=== PATIENT | female | born 1985 | race African-American/Black ===

== ENCOUNTER → 2016-08-20 | Outpatient (REF) | payer OTHER ==
[~2016-08-20] MED LIST: /MOM400 PO; ALBU17IN INH; ANUS2.5C2 TOP; DOCU10CA PO; DOCU10ELUD PO; IBUP600T26 PO; PNV-CAP5 PO; TYLE325T5 PO
== END ==
LOC: M LAB REF 11:38
PROVIDERS: ATTEND Physician Assistant
DX: R50.9 Fever, unspecified (principal)

== ENCOUNTER 2016-08-28 18:59 | Emergency (ER) | payer OTHER ==
[2016-08-28 19:26] VITALS: BP 138/93
== END 2016-08-28 20:02 | disposition left against medical advice (07) ==
LOC: M ED 19:59
DX: R11.2 Nausea with vomiting, unspecified (principal); J45.909 Unspecified asthma, uncomplicated; D64.9 Anemia, unspecified; Z91.018 Allergy to other foods; Z91.040 Latex allergy status; Z79.899 Other long term (current) drug therapy; Z79.1 Long term (current) use of non-steroidal anti-inflammatories (NSAID); F17.210 Nicotine dependence, cigarettes, uncomplicated; Z53.29 Procedure and treatment not carried out because of patient's decision for other reasons

== ENCOUNTER 2016-09-28 09:43 | Emergency (ER) | payer OTHER ==
[~2016-09-28] VITALS: Ht 167.6 cm; Wt 81.6 kg
[2016-09-28] MEDS ORDERED: ALBU17IN INH (09:56)
[2016-09-28] MEDS ORDERED: GASTROGRAFIN SOLUTION 30ML (Q9963) PO ONE ×2 (11:00→11:30)
[2016-09-28 11:07] LABS: BASO % 0.6 % (0.0-1.0); EOS # 0.2 K/mm3 (0.0-0.50); EOS % 4.9 % (0.0-3.0); LARGE UNSTAINED CELL # 0.3 K/mm3 (0.0-0.4); LYMPH # 1.4 K/mm3 (1.5-4.5); LYMPH % 24.4 % (24.0-44.0); MEAN CORPUSCULAR HEMOGLOBIN 30.7 pg (27.0-33.0); MEAN CORPUSCULAR HGB CONC 32.3 g/dl (32.0-36.5); MONO # 0.5 K/mm3 (0.0-0.8); MONO % 10.4 % (0.0-5.0); NEUTROPHILS # 2.5 K/mm3 (1.8-7.7); NEUTROPHILS % 53.8 % (36.0-66.0); PLATELET COUNT, AUTOMATED 249 k/mm3 (150-450); WHITE BLOOD COUNT 4.7 K/mm3 (4.0-10.0)
[2016-09-28] MEDS ORDERED: ONDANSETRON 4MG/2ML VIAL (J2405) IV ONE (11:15)
[2016-09-28 11:28] LABS: ALBUMIN 3.4 GM/DL (3.2-5.2); ALBUMIN/GLOBULIN RATIO 0.92 (1.00-1.93); ALKALINE PHOSPHATASE 38 U/L (45-117); ALT/SGPT 11 U/L (12-78); ANION GAP 6 MEQ/L (8-16); AST/SGOT 7 U/L (15-37); BILIRUBIN,TOTAL 0.4 MG/DL (0.2-1.0); BLOOD UREA NITROGEN 8 MG/DL (7-18); CARBON DIOXIDE LEVEL 25 MEQ/L (21-32); CHLORIDE LEVEL 108 MEQ/L (98-107); CREATININE FOR GFR 0.67 MG/DL (0.55-1.02); GLOMERULAR FILTRATION RATE > 60.0 (>60); GLUCOSE, FASTING 83 MG/DL (70-105); POTASSIUM SERUM 3.4 MEQ/L (3.5-5.1); SODIUM LEVEL 139 MEQ/L (136-145); TOTAL PROTEIN 7.1 GM/DL (6.4-8.2)
[2016-09-28] MEDS ORDERED: ISOVUE-370 76% 100ML VIAL (Q9967) As Ordered ONE (12:15)
--- NOTE | 2016-09-28 14:17 | REP ---
CT ABDOMEN AND PELVIS WITH IV CONTRAST: 09/28/2016. Clinical history: Right lower quadrant pain. Rule out appendicitis. Technique: Bolus of 100 ml Isovue 370 given. Scanning through the abdomen and pelvis. Only a small amount of oral contrast appears ingested barely opacifying a portion of the stomach and minimally in small bowel loops. Coronal and sagittal reconstructions were provided. Findings: No prior study.CT abdomen: The lung bases were clear. Heart is not enlarged. There is no pericardial thickening or effusion. No definite hiatal hernia. Liver, spleen, gallbladder, pancreas, adrenal glands and kidneys were unremarkable. The aorta is without aneurysm or dissection. There is no periaortic other retroperitoneal pathologic sized lymphadenopathy. Lung window review of all CT slice levels shows no perforation or abscess. Small bowel loops are fluid filled but not abnormally dilated. Colon in the abdomen proper shows no sign of colitis, diverticulitis, stricture or mass. Transverse and left colon are collapsed without inflammatory changes adjacent to the colon in the fat. The lung window review of all CT slices in the abdomen and pelvis shows no perforation or free air. Bone windows show lumbar and lower thoracic spine as well as the visualized ribs all intact without focal lesion. No ventral hernia. CT pelvis: The bony hips, pelvis, sacrum, SI joints, lumbosacral junction and symphysis pubis were unremarkable. There is a paucity of fat in the retroperitoneum and mesentery. The absence of oral contrast in the bowel loops distally is limiting sensitivity of the examination. However, the cecum shows stool and gas within the ileocecal valve unremarkable. It is very difficult to separate the appendix out from other structures. I do not see air bubbles or signs of perforation on lung window review of this region. I do not see significant inflammatory changes in the fat adjacent to the cecum that would clearly define appendicitis. Small bowel loops in the pelvis are not abnormally dilated. The distal left colon, sigmoid and rectum are without signs of colitis or diverticulitis. I do not see a definite adnexal mass but superior and lateral to the uterine fundus is an area of tissue enhancement and some cystic change up to 2.5 cm. This could be an adnexal cyst. The uterus is anteverted. In the fundus of the uterus is an oval low density zone. It is 2.4 x 1 x 2.5 cm. This could be a fluid in the endometrial cavity from menses or it could relate to a gestational sac or pseudogestational sac. There is no ventral hernia or inguinal hernia. There are some inguinal nodes which are not pathologic by CT size criteria, the largest of these is 7 mm in short axis. Impression: 1. Study insensitive for determination of appendicitis. There is no gross evidence of appendiceal abscess, perforation or free air near the cecum. The appendix is not confidently identified. The paucity of retroperitoneal and omental fat in this patient and absence of oral contrast in distal loops limits the exam significantly for that purpose. 2. No evidence for definite pelvic free fluid. There is an anteverted uterus with a 2.5 x 2.4 x 1 cm fluid collection in the fundus. This could be menstrual fluid, gestational sac or pseudogestational sac. I would note that the technologist documented that the patient denied . 3. Superior and towards the right lateral aspect of the uterus is a 2.5 cm low density focus with some enhancement of tissue adjacent to it. This could be ovarian tissue with a cyst or other. No perforation or findings to suggest abscess. I cannot definitely connect this to suggest it is a dilated inflamed appendix. No pelvic free fluid. 4. Upper abdomen unremarkable. 5. Pelvic ultrasound recommended. This is to evaluate the uterus and adnexa but also I would recommend a limited abdomen ultrasound for graded compression ultrasound of the region of the cecum and appendix. This is recommended to be done at the same time. Signed by Lamont Rollins MD 09/28/2016 07:32 P
[2016-09-28 15:09] LABS: CONTROL LINE HCG INT CTR LINE PRESENT
[2016-09-28] MEDS ORDERED: ACETAMINOPHEN 325 MG TAB PO ONE (15:30)
[2016-09-28] MEDS ORDERED: MECLIZINE 25 MG TABLET PO ONE (15:30)
[2016-09-28] MEDS ORDERED: ZOFR4TAB3 PO (16:25)
[2016-09-28] MEDS ORDERED: PRENTAB40 PO (16:28)
[2016-09-28 16:46] VITALS: BP 116/65
--- NOTE | 2016-09-29 08:00 | REP ---
FIRST TRIMESTER OB ULTRASOUND: 09/28/2016. Clinical history: Evaluate adnexa and ovaries. Findings: The patient had a CT abdomen and pelvis earlier this date with IV contrast. Concern for possible appendicitis with lower abdominal pain, vomiting. Our technologist note indicate that the patient states that she was not . The CT scan showed oval fluid collection in the fundus of the uterus that could be gestational sac or other. Transabdominal images were obtained. These demonstrate a gestational sac in the fundus of the uterus. There is a pole with a crown-rump length 6 mm. This corresponds to 6 weeks 2 days. This would give an EDC of 05/22/2017. heart activity noted at 128 bpm. There is no subchorionic bleed. The right ovary is 3.8 x 4.3 x 1.6 cm. Within it is a 1.7 cm presumed corpus luteum. Doppler tracing shows resistive index 0.61 for that right ovary. The left ovary is 3.5 x 2.5 x 1.5 cm. It also shows normal Doppler tracing with resistive index 0.54. No cyst or solid mass. No free fluid. Impression: 1. Single intrauterine gestation at 6 weeks 2 days gestational age by crown-rump length. heart activity noted at 128 bpm. EDC 05/22/2017.2. No subchorionic bleed or pelvic free fluid. 3. A 1.7 cm presumed corpus luteum in the right ovary with normal Doppler tracings to both ovaries and no free fluid. Signed by Lamont Rollins MD 09/29/2016 08:41 A
--- NOTE | 2016-09-29 08:02 | REP ---
LIMITED ABDOMINAL ULTRASOUND: 09/28/2016. Comparison: CT abdomen and pelvis this date which did not clearly visualize the appendix. Clinical history: Lower abdominal pain. She is 6 weeks 2 days by OB ultrasound at this time. Findings: Sonographic evaluation of the right lower quadrant in this patient with lower abdominal pain but no fever or white count. Appendix was not visualized. There was some pain with transducer pressure but no rebound tenderness. No mesenteric lymph nodes or infiltration of the mesenteric fat is noted. There is a small amount of free fluid in the right lower quadrant which was not definitely seen on the OB first trimester ultrasound today. There is peristalsis of small bowel and the cecum is visualized. No visible iliac nodes. Impression: 1. There is transducer pressure pain, but no rebound tenderness in the right lower quadrant during today's scan. The cecum is visualized, but the appendix is not. No adenopathy or infiltration of the pericecal fat. This does not exclude the possibility of appendicitis but she may be followed clinically and be rescanned a clinically appropriate interval if that becomes necessary. Signed by Lamont Rollins MD 09/29/2016 08:41 A
== END 2016-09-28 16:52 | disposition home or self-care (01) ==
LOC: M ED 10:19
DX: O99.89 Other specified diseases and conditions complicating pregnancy, childbirth and the puerperium (principal); A09 Infectious gastroenteritis and colitis, unspecified; Z3A.01 Less than 8 weeks gestation of pregnancy
CPT/HCPCS: 36415; 74177; 76705; 76801; 80053; 83690; 84703; 85025; 96374; 99283; J2405; Q9963; Q9967

== ENCOUNTER → 2016-12-22 | Outpatient (CLI) | payer MEDICAID, OTHER ==
[~2016-12-22] MED LIST changes: +ACET30TAB PO; +ACET50TA PO; +ALBU83IN INH; +PRED20TA PO; +PRENTAB40 PO; +RANI150T; +TUMS500C PO; +VENTAER IN; +ZITHTAB PO; +ZOFR4TAB3 PO
[2016-12-22 14:45] LABS: BASO # 0.1 K/mm3 (0.0-0.2); BASO % 0.6 % (0.0-1.0); EOS # 0.8 K/mm3 (0.0-0.50); EOS % 6.7 % (0.0-3.0); LARGE UNSTAINED CELL # 0.4 K/mm3 (0.0-0.4); LARGE UNSTAINED CELL % 3.3 % (0.0-4.0); LYMPH # 3.1 K/mm3 (1.5-4.5); LYMPH % 24.8 % (24.0-44.0); MEAN CORPUSCULAR HEMOGLOBIN 32.3 pg (27.0-33.0); MEAN CORPUSCULAR HGB CONC 33.2 g/dl (32.0-36.5); MEAN CORPUSCULAR VOLUME 97.3 fl (80.0-96.0); MONO # 0.9 K/mm3 (0.0-0.8); MONO % 7.6 % (0.0-5.0); NEUTROPHILS # 7.1 K/mm3 (1.8-7.7); NEUTROPHILS % 57.1 % (36.0-66.0); PLATELET COUNT, AUTOMATED 317 k/mm3 (150-450); RED CELL DISTRIBUTION WIDTH 14.2 % (11.5-14.5)
[2016-12-24 08:50] LABS: WHITE BLOOD COUNT 12.4 K/mm3 (4.0-10.0)
[2016-12-24 12:08] LABS: HBsAg Prenatal NEGATIVE (NEGATIVE)
== END ==
LOC: M LAB 13:29
PROVIDERS: ATTEND Specialist
DX: Z34.81 Encounter for supervision of other normal pregnancy, first trimester (principal); Z36 Encounter for antenatal screening of mother

== ENCOUNTER → 2017-03-11 | Outpatient (CLI) | payer OTHER ==
--- NOTE | 2017-03-11 17:12 | REP ---
OB ULTRASOUND: Real-time sonographic evaluation of the gravid uterus is performed. There is a single living intrauterine gestation. The estimated gestational age is 29 weeks 5 days based on the first ultrasound, EDC 05/22/2017. Today's measurements indicate appropriate growth. BPD 77 mm = 30 weeks 6 days, at the 66th percentile. HC 263 mm = 28 weeks 4 days, at the 25th percentile. AC 255 mm = 29 weeks 5 days, at the 48th percentile. Femur length 60 mm = 31 weeks 2 days, at the 77th percentile. HC/AC ratio 1.03 within normal range. Estimated weight 1522 grams, 51st percentile. Cervix is closed measures 5.5 cm in length. heart rate 158 beats per minute. Amniotic fluid within normal limits, RICH 14.5 within normal range of 9.0-23.3. SD ratio 2.61 within normal range. RI 0.62 within normal range. SEEN/GROSSLY UNREMARKABLE Lateral ventricles Yes Posterior fossa Yes Upper lip Yes Four-chamber heart Yes LVOT Yes RVOT No Stomach Yes Cord insertion Yes Three vessel cord No Kidneys Yes Bladder Yes Spine Yes position: Vertex. Placenta: Anterior and fundal with grade 1 with no previa or abruption. Signed by Phuc Garrison MD 03/12/2017 05:36 P
== END ==
LOC: M RAD 14:34
PROVIDERS: ATTEND Specialist
DX: Z34.82 Encounter for supervision of other normal pregnancy, second trimester (principal); Z36 Encounter for antenatal screening of mother; Z3A.29 29 weeks gestation of pregnancy

== ENCOUNTER 2017-03-18 12:03 | Outpatient (CLI) | payer OTHER ==
[~2017-03-18] VITALS: Ht 170.2 cm; Wt 89.6 kg
[~2017-03-18 12:03] MED LIST changes: -ACET30TAB PO; -ACET50TA PO; -ALBU83IN INH; -PRED20TA PO; -RANI150T; -TUMS500C PO; -VENTAER IN; -ZITHTAB PO
[2017-03-18 12:30] VITALS: BP 104/56
[2017-03-18] MEDS ORDERED: ACETAMINOPHEN 500 MG TAB PO PRN (14:00)
[2017-03-18] MEDS ORDERED: FAMOTIDINE 20 MG TAB PO ONE (14:00)
[2017-04-26] MEDS ORDERED: ACET50TA PO (17:24)
[2017-04-26] MEDS ORDERED: TUMS500C PO (17:24)
[2017-04-26] MEDS ORDERED: ACET30TAB PO (17:45)
== END 2017-03-18 15:50 | disposition home or self-care (01) ==
LOC: M LDO 12:03
PROVIDERS: ATTEND Specialist
DX: O26.893 Other specified pregnancy related conditions, third trimester (principal); R10.32 Left lower quadrant pain; O99.613 Diseases of the digestive system complicating pregnancy, third trimester; R12 Heartburn; Z3A.30 30 weeks gestation of pregnancy; Z91.040 Latex allergy status; Z91.018 Allergy to other foods

== ENCOUNTER → 2017-04-13 | Outpatient (CLI) | payer OTHER ==
[~2017-04-13] MED LIST changes: +ACET30TAB PO; +ACET50TA PO; +ALBU83IN INH; +PRED20TA PO; +RANI150T; +TUMS500C PO; +VENTAER IN; +ZITHTAB PO
[2017-04-13 14:12] LABS: MEAN CORPUSCULAR HEMOGLOBIN 30.9 pg (27.0-33.0); MEAN CORPUSCULAR HGB CONC 33.4 g/dl (32.0-36.5); MEAN CORPUSCULAR VOLUME 92.4 fl (80.0-96.0); PLATELET COUNT, AUTOMATED 307 10^3/uL (150-450); RED CELL DISTRIBUTION WIDTH 13.6 % (11.5-14.5)
[2017-04-13 14:22] LABS: ADD MANUAL DIFFER YES; DIFF SLIDE NUMBER 245; POSITIVE DIFF POS FLAG
--- NOTE | 2017-04-13 15:10 | REP ---
Follow-up obstetric ultrasound for anatomy follow-up from 03/11/2017. On the prior study the cardiac right ventricular outflow tract and three-vessel cord cannot be optimally demonstrated. The study today is for follow-up of these structures. There is a single intrauterine gestation in a vertex presentation. There is motion and cardiac activity with a heart rate of 141 beats per minute. The placenta is fundal and left lateral. There is no placenta previa or abruptio. Placenta is grade 1. Subjectively the amniotic fluid volume is normal. The amniotic fluid index is 9.5. This is a 0.0 - 28.4). Based on today's measurements the gestational age is 34 weeks 2 days with an NITIN of 05/23/2017. According to the first ultrasound the gestational age is 34 weeks 3 days. weight is 234, 0 grams (5 pounds, 2 ounces). This is the 39th percentile for 34 weeks 3 days. biophysical profile: Breathing 2 Movement 2 Tone 2 Amniotic fluid volume 2 Total 01/27 Umbilical artery Doppler assessment: SD ratio 2.24. This is 2.00 - 3.00) Resistive index 0.55 (0.59 - 0.75) Diastolic flow velocity 20.1 cm/sec (normal). On the study today the cardiac right ventricular outflow tract is adequately demonstrated and unremarkable. The three-vessel cord is adequately demonstrated and unremarkable. The remainder of the anatomy was previously normal. Signed by Phcu Abraham MD 04/13/2017 03:01 P
[2017-04-13 15:14] LABS: BANDS 1 % (< 11); BASOPHILS 1 % (0-4); EOSINOPHILS 4 % (0-5)
== END ==
LOC: M LAB 11:50
PROVIDERS: ATTEND Obstetrics & Gynecology
DX: Z34.82 Encounter for supervision of other normal pregnancy, second trimester (principal); Z36.2 Encounter for other antenatal screening follow-up; Z3A.34 34 weeks gestation of pregnancy

== ENCOUNTER 2017-04-16 08:18 | Emergency (ER) | payer OTHER ==
[~2017-04-16] VITALS: Ht 167.6 cm; Wt 94.1 kg
[~2017-04-16 08:18] MED LIST changes: -ACET30TAB PO; -ACET50TA PO; -ALBU83IN INH; -PRED20TA PO; -RANI150T; -TUMS500C PO; -VENTAER IN; -ZITHTAB PO
[2017-04-16] MEDS ORDERED: methylPREDNISolone INJ 125 MG/2 ML VIAL (J2930) IV ONE (08:30)
[2017-04-16] MEDS ORDERED: ALBUTEROL SULFATE 2.5 MG/0.5 ML INH NEB SOLN INH ONE (08:30)
[2017-04-16] MEDS ORDERED: IPRATROPIUM 0.5MG/ALBUTEROL 2.5MG INH SOL UD 3ML (DUONEB)(J7620) NEB ONE (08:30)
[2017-04-16] MEDS ORDERED: RANI150T (08:33)
--- NOTE | 2017-04-16 09:13 | REP ---
CHEST, SINGLE VIEW: There is no evidence of acute infiltrate. No pleural effusion is seen. The heart is normal in size. The mediastinal silhouette is unremarkable. The visualized osseous structures are intact. IMPRESSION: No acute pulmonary disease. Signed by Phuc Garrison MD 04/16/2017 02:33 P
[2017-04-16 09:21] LABS: MEAN CORPUSCULAR HEMOGLOBIN 30.8 pg (27.0-33.0); MEAN CORPUSCULAR HGB CONC 33.2 g/dl (32.0-36.5); MEAN CORPUSCULAR VOLUME 92.6 fl (80.0-96.0); PLATELET COUNT, AUTOMATED 299 10^3/uL (150-450); RED CELL DISTRIBUTION WIDTH 13.5 % (11.5-14.5)
[2017-04-16 09:34] LABS: POSITIVE DIFF POS FLAG
[2017-04-16 09:35] LABS: ADD MANUAL DIFFER YES; DIFF SLIDE NUMBER 131
[2017-04-16 09:51] LABS: ALBUMIN 2.6 GM/DL (3.2-5.2); ALBUMIN/GLOBULIN RATIO 0.58 (1.00-1.93); ALKALINE PHOSPHATASE 83 U/L (45-117); ALT/SGPT 12 U/L (12-78); ANION GAP 9 MEQ/L (8-16); AST/SGOT 6 U/L (15-37); BILIRUBIN,DIRECT < 0.1 MG/DL (0.0-0.2); BILIRUBIN,TOTAL 0.4 MG/DL (0.2-1.0); BLOOD UREA NITROGEN 4 MG/DL (7-18); CALCIUM LEVEL 8.6 MG/DL (8.5-10.1); CARBON DIOXIDE LEVEL 23 MEQ/L (21-32); CHLORIDE LEVEL 107 MEQ/L (98-107); CREATININE FOR GFR 0.44 MG/DL (0.55-1.02); GLOMERULAR FILTRATION RATE > 60.0 (>60); GLUCOSE, FASTING 85 MG/DL (70-105); POTASSIUM SERUM 3.6 MEQ/L (3.5-5.1); SODIUM LEVEL 139 MEQ/L (136-145); THYROXINE (T4) 15.1 UG/DL (4.5-12.0); TOTAL PROTEIN 7.1 GM/DL (6.4-8.2)
[2017-04-16 09:53] LABS: EOSINOPHILS 4 % (0-5)
[2017-04-16] MEDS ORDERED: ONDANSETRON 4MG/2ML VIAL (J2405) IV ONE (10:15)
[2017-04-16 10:27] VITALS: O2SAT 98
[2017-04-16] MEDS ORDERED: PRED20TA PO (11:15)
[2017-04-16] MEDS ORDERED: VENTAER IN (11:17)
[2017-04-16] MEDS ORDERED: ZITHTAB PO (11:17)
[2017-04-16] MEDS ORDERED: AZITHROMYCIN 250 MG TAB PO ONE (11:30)
[2017-04-16 11:53] VITALS: BP 108/62
[2017-04-16] MEDS ORDERED: ALBU83IN INH (12:41)
[2017-04-26] MEDS ORDERED: ACET50TA PO (17:24)
[2017-04-26] MEDS ORDERED: TUMS500C PO (17:24)
[2017-04-26] MEDS ORDERED: ACET30TAB PO (17:45)
== END 2017-04-16 12:36 | disposition home or self-care (01) ==
LOC: M ED 08:18
DX: O99.52 Diseases of the respiratory system complicating childbirth (principal); O99.280 Endocrine, nutritional and metabolic diseases complicating pregnancy, unspecified trimester; Z79.899 Other long term (current) drug therapy; Z91.040 Latex allergy status; Z91.018 Allergy to other foods
CPT/HCPCS: 71010; 80048; 80076; 83605; 84436; 84443; 85025; 87040; 87804; 93041; 94640; 94760; 96374; 96375; 99285; J2405; J2930

== ENCOUNTER 2017-04-26 12:47 | Outpatient (CLI) | payer MEDICAID, SELFPAY, OTHER ==
[2017-04-26] MEDS: ACETAMINOPHEN 500 MG TAB PO (13:50)
[2017-04-26] MEDS: NITROFURANTOIN (MACROBID) 100 MG CAP PO (18:17)
[2017-04-26] MEDS: ACETAMINOPH W/CODEINE #3 TAB UD PO (18:18)
[2017-04-26] MEDS ORDERED: NITROFURANTOIN (MACROBID) 100 MG CAP PO (21:00)
== END 2017-04-26 18:24 | disposition home or self-care (01) ==
LOC: M LDO 12:47
DX: O26.893 Other specified pregnancy related conditions, third trimester (principal); Z3A.37 37 weeks gestation of pregnancy; Z91.040 Latex allergy status; Z91.018 Allergy to other foods
CPT/HCPCS: 81001

== ENCOUNTER 2017-05-06 20:39 | Outpatient (CLI) | payer SELFPAY ==
[~2017-05-06] VITALS: Ht 170.2 cm; Wt 92.3 kg
[~2017-05-06 20:39] MED LIST changes: +ACET30TAB PO; +ACET50TA PO; +ALBU83IN INH; +PRED20TA PO; +RANI150T; +TUMS500C PO; +VENTAER IN; +ZITHTAB PO
[2017-05-06 20:44] VITALS: BP 109/71
[2017-05-06] MEDS ORDERED: FAMO20TA PO (21:11)
== END 2017-05-06 21:20 | disposition home or self-care (01) ==
LOC: M LDO 20:39
PROVIDERS: ATTEND Obstetrics & Gynecology
DX: O47.1 False labor at or after 37 completed weeks of gestation (principal); Z3A.37 37 weeks gestation of pregnancy; Z87.442 Personal history of urinary calculi; O99.343 Other mental disorders complicating pregnancy, third trimester; F31.9 Bipolar disorder, unspecified; O99.513 Diseases of the respiratory system complicating pregnancy, third trimester; J45.909 Unspecified asthma, uncomplicated; Z88.0 Allergy status to penicillin; Z91.040 Latex allergy status; Z91.018 Allergy to other foods; Z79.899 Other long term (current) drug therapy

== ENCOUNTER 2017-05-09 01:00 | Outpatient (CLI) | payer SELFPAY ==
[~2017-05-09] VITALS: Ht 167.6 cm; Wt 95.0 kg
[~2017-05-09 01:00] MED LIST changes: +FAMO20TA PO
[2017-05-09 01:05] VITALS: BP 110/57
[2017-05-09] MEDS ORDERED: VENTAER IN (01:24)
[2017-05-09] MEDS ORDERED: PROMETHAZINE INJ 25 MG/ML VIAL (J2550) IV ONE (02:00)
[2017-05-09] MEDS ORDERED: MORPHINE 10 MG/ML 1ML VIAL SC ONE (02:00)
[2017-05-09] MEDS ORDERED: MORPHINE 10 MG/ML 1ML VIAL IV ONE (02:00)
== END 2017-05-09 07:26 | disposition home or self-care (01) ==
LOC: UNDOADMIN 01:00 → M LDI 01:00 → M LDO 01:00 → UNDODISIN 07:26 → EDSTATUS 05-11 15:36
PROVIDERS: ATTEND Obstetrics & Gynecology
DX: O47.1 False labor at or after 37 completed weeks of gestation (principal); Z3A.38 38 weeks gestation of pregnancy

== ENCOUNTER 2017-05-16 07:59 | Inpatient (IN) | payer SELFPAY ==
[2017-05-16] VITALS (23 sets, daily range): BP systolic 86–118; BP diastolic 52–73
[~2017-05-16] VITALS: Ht 170.2 cm; Wt 94.6 kg
[2017-05-16] MEDS: miSOPROStol 50 MCG 1/2 TAB (S0191) PO SCH ×2 (09:32→13:32)
[2017-05-16 09:40] LABS: MEAN CORPUSCULAR HEMOGLOBIN 30.5 pg (27.0-33.0); MEAN CORPUSCULAR HGB CONC 33.3 g/dl (32.0-36.5); MEAN CORPUSCULAR VOLUME 91.6 fl (80.0-96.0); PLATELET COUNT, AUTOMATED 365 10^3/uL (150-450); RED CELL DISTRIBUTION WIDTH 14.1 % (11.5-14.5); WHITE BLOOD COUNT 9.9 10^3/uL (4.0-10.0)
--- NOTE | 2017-05-16 10:02 | HPE ---
DATE OF ADMISSION: 05/16/2017 Yara is a 31-year-old 6, para 5-0-0-5 at 39-1/7 weeks gestation with an estimated date of confinement (EDC) of 05/22/2017 based on first trimester ultrasound. She presents to labor and delivery today per request for social induction per consult with Dr. Sybil Clifton. care was initiated at [facility] in the first trimester. course uncomplicated. OBSTETRICAL HISTORY: September 2007 at 42 weeks gestation she had a vacuum-assisted delivery for a 6 pound 2 ounces male. November 2009 at 38-2/7 weeks gestation she had spontaneous vaginal delivery of a 6 pound 9 ounce male. November 2010 at 40 weeks gestation she had a spontaneous vaginal delivery for a 6 pound 10 ounce male. April 2013 at 40 weeks gestation she had a spontaneous vaginal delivery for a 7 pound female. June 2014 at 39-6/7 weeks gestation she had a spontaneous vaginal delivery for 5 pound 7 ounce male. OBSTETRIC LABS: B positive. Antibody screen negative. Rubella immune. VDRL nonreactive. Urine culture no growth. Hep B surface antigen negative. HIV negative. Hep C antibody nonreactive. Gonorrhea and chlamydia negative. Declined genetic serum screening labs. Gestational diabetic screening 78. Group B Streptococcus (GBS) negative. PAST MEDICAL HISTORY: Kidney stones. Bipolar. depression. Asthma. Seasonal allergies. Penicillin allergy. Latex allergy. Abnormal Pap smear. Childhood varicella. SURGERIES: None. FAMILY HISTORY: Diabetes, hypertension, anemia, schizophrenia, Moyamoya disease. SOCIAL HISTORY: The patient is single. The father is not involved and not at bedside. She does have a friend that is for social support. She is a previous smoker, reports quitting prior to . Denies alcohol and drug use. Denies history of any sexually transmitted infections. Denies history of abuse physical, sexual and emotional. ALLERGIES: 1. LATEX. 2. PENICILLIN. CURRENT MEDICATIONS:: - Zantac 150 b.i.d. - vitamins OBJECTIVE: Temperature 98.5, pulse 90, respirations 18, blood pressure 118/73. She is alert and oriented times three, smiling and talkative. heart rate is 150 with moderate variability, positive accelerations, negative decelerations, occasional contraction. Abdomen is gravid, cephalic presentation. Estimated weight 6-1/2 pounds. Sterile vaginal exam 1 cm dilated, 50% effaced, -2 station. ASSESSMENT: Intrauterine at 39-1/7 weeks. heart rate category 1. PLAN: Admit patient to labor and delivery. Routine labs. Saline lock. Out of bed ad jamel. Regular diet at this time. Misoprostol 50 mcg q.4 h for cervical ripening. I did review risks to induction including increased risk for section, failed induction. intolerance to labor. The patient has had all her questions answered and requests to continue social induction. I do anticipate cervical ripening.
[2017-05-16] MEDS ORDERED: LR 1,000 ML IV SCH (17:28)
[2017-05-16] MEDS ORDERED: OXYTOCIN DRIP 30 UNITS in APPROPRIATE DILUENT 1 EA IV SCH ×5 (17:30→23:07)
[2017-05-16] MEDS ORDERED: FENTANYL 2MCG/ML ROPIVACAINE 0.2% IN 0.9% NACL 200ML IVBAG As Ordered ONE (17:30)
[2017-05-16] MEDS ORDERED: ePHEDrine SULFATE 25 MG/5 ML(5MG/ML) SYRINGE As Ordered ONE (19:23)
[2017-05-16] MEDS ORDERED: MEASLES,MUMPS,RUBELLA VACCINE INJ (MMR-II) (90707) SC SCH (23:15)
[2017-05-16] MEDS ORDERED: METHYLERGONOVINE MALEATE 0.2 MG TAB PO PRN (23:15)
[2017-05-16] MEDS ORDERED: RHOGAM 300 MCG (1500 IU) INJ (J2790) IM SCH (23:15)
[2017-05-16] MEDS ORDERED: DIBUCAINE 1% OINTMENT 30GM TOP PRN (23:15)
[2017-05-16] MEDS ORDERED: ACETAMINOPHEN 500 MG TAB PO PRN (23:15)
[2017-05-16] MEDS ORDERED: DOCUSATE SODIUM 100 MG CAP PO PRN (23:15)
[2017-05-16] MEDS: IBUPROFEN 800 MG TAB PO PRN (23:49)
--- NOTE | 2017-05-17 00:49 | DN ---
DATE OF SERVICE: 05/16/2017 Yara is a 31-year-old 6, para 6-0-0-6 now who was admitted to labor and delivery for induction of labor for social reasons. Misoprostol and intravenous (IV) Pitocin was utilized. Labor did ensue and she utilized an epidural for her labor coping. She progressed to full dilation at 1038. She pushed to a normal spontaneous vaginal delivery of a live female in occiput anterior (OA) position with restitution to right occiput transverse (ROT) position at 1046. There was no nuchal cord. The shoulders delivered with gentle downward traction and the corpus immediately followed. The was placed on maternal abdomen crying and active. Mouth and nares were bulb suctioned. The cord was clamped times two once pulsations ceased and cut by maternal friend. Uterine hemostasis was achieved with IV Pitocin rapid infusion and uterine fundal massage. Estimated blood loss 300 mL. Perineum and vagina were inspected, noted to have a perineal abrasion. The abrasion was bleeding, so one interrupted suture was placed with 3-0 Rapide. Geff female weighed 2780 grams or 6 pounds 2 ounces, scores 8 and 9. Family is going to name her daughter Colleen Suarez. The mom plans to both breast and bottle feed. At the close of delivery, lap counts, needle counts and instrument counts were correct and verified.
[2017-05-17 01:00] VITALS: BP 121/60
[2017-05-17 06:17] VITALS: BP 101/58
[2017-05-17] MEDS ORDERED: PERCOCET 5MG/325MG TAB PO PRN (08:00)
[2017-05-17] MEDS: PERCOCET 5MG/325MG TAB PO PRN ×3 (08:11→21:43)
[2017-05-17] MEDS: PRENATAL VITAMINS CHEWABLE TABLET PO SCH (08:11)
[2017-05-17 18:07] VITALS: BP 115/67
[2017-05-17] MEDS: IBUPROFEN 800 MG TAB PO PRN (18:08)
[2017-05-18] MEDS: PERCOCET 5MG/325MG TAB PO PRN ×2 (02:04→09:50)
[2017-05-18] MEDS: IBUPROFEN 800 MG TAB PO PRN (05:26)
[2017-05-18 06:00] VITALS: BP 119/71
[2017-05-18] MEDS: PRENATAL VITAMINS CHEWABLE TABLET PO SCH (07:31)
[2017-05-18] MEDS ORDERED: ADVI200C5 PO (09:12)
== END 2017-05-18 14:25 | disposition home or self-care (01) | DRG 560 ==
LOC: M LDI 07:59 → M OBS 05-17 02:11
PROVIDERS: ADMIT Advanced Practice Midwife; ATTEND Advanced Practice Midwife
PROC: 10E0XZZ Delivery of Products of Conception, External Approach (ICD-10-PCS; principal; 2017-05-16)
PROC: 3E0DXGC Introduction of Other Therapeutic Substance into Mouth and Pharynx, External Approach (ICD-10-PCS; 2017-05-16)
PROC: 3E033VJ Introduction of Other Hormone into Peripheral Vein, Percutaneous Approach (ICD-10-PCS; 2017-05-16)
DX: O80 Encounter for full-term uncomplicated delivery (principal); Z87.891 Personal history of nicotine dependence; Z37.0 Single live birth; Z3A.39 39 weeks gestation of pregnancy; Z88.0 Allergy status to penicillin; Z91.040 Latex allergy status

== ENCOUNTER 2017-09-14 11:31 | Emergency (ER) | payer OTHER, MEDICAID ==
[2017-09-14] MEDS: IPRATROPIUM 0.5MG/ALBUTEROL 2.5MG INH SOL UD 3ML (DUONEB)(J7620) NEB ×2 (11:43→11:51)
[2017-09-14] MEDS: methylPREDNISolone INJ 125 MG/2 ML VIAL (J2930) IV (11:55)
== END 2017-09-14 15:11 | disposition home or self-care (01) ==
LOC: M ED 11:31
DX: J45.901 Unspecified asthma with (acute) exacerbation (principal); R00.0 Tachycardia, unspecified; F31.9 Bipolar disorder, unspecified; Z91.018 Allergy to other foods; Z91.040 Latex allergy status
CPT/HCPCS: J2930

== ENCOUNTER 2017-10-16 18:30 | Emergency (ER) | payer OTHER ==
[2017-10-16 19:23] LABS: BASO # 0.1 10^3/uL (0.0-0.2); BASO % 0.3 % (0.0-1.0); EOS # 0.2 10^3/uL (0.0-0.50); EOS % 1.3 % (0.0-3.0); HEMATOCRIT 37.3 % (36.0-47.0); HEMOGLOBIN 12.5 g/dl (12.0-15.5); IMMATURE GRANULOCYTE % 0.4 % (0-3.0); LYMPH # 2.2 10^3/uL (1.5-4.5); LYMPH % 12.5 % (24.0-44.0); MEAN CORPUSCULAR HEMOGLOBIN 29.7 pg (27.0-33.0); MEAN CORPUSCULAR HGB CONC 33.5 g/dl (32.0-36.5); MEAN CORPUSCULAR VOLUME 88.6 fl (80.0-96.0); MONO # 1.7 10^3/uL (0.0-0.8); MONO % 9.6 % (0.0-5.0); NEUTROPHILS # 13.3 10^3/uL (1.8-7.7); NEUTROPHILS % 75.9 % (36.0-66.0); PLATELET COUNT, AUTOMATED 368 10^3/uL (150-450); RED BLOOD COUNT 4.21 10^6/uL (4.00-5.40); RED CELL DISTRIBUTION WIDTH 15.8 % (11.5-14.5); WHITE BLOOD COUNT 17.5 10^3/uL (4.0-10.0)
[2017-10-16] MEDS: NS 1,000 ML IV (19:46)
[2017-10-16] MEDS: MORPHINE 4 MG/ML 1ML VIAL/SYRINGE (J2270) IV (19:47)
[2017-10-16 19:50] LABS: CONTROL LINE HCG INT CTR LINE PRESENT; HCG, SERUM QUALITATIVE NEGATIVE (NEGATIVE)
[2017-10-16 19:57] LABS: ANION GAP 6 MEQ/L (8-16); BLOOD UREA NITROGEN 8 MG/DL (7-18); CALCIUM LEVEL 8.4 MG/DL (8.5-10.1); CARBON DIOXIDE LEVEL 25 MEQ/L (21-32); CHLORIDE LEVEL 110 MEQ/L (98-107); CREATININE FOR GFR 0.75 MG/DL (0.55-1.30); GLOMERULAR FILTRATION RATE > 60.0 (>60); GLUCOSE, FASTING 91 MG/DL (70-100); HCG, SERUM QUANTITATIVE < 1.0 MIU/ML; POTASSIUM SERUM 3.7 MEQ/L (3.5-5.1); SODIUM LEVEL 141 MEQ/L (136-145)
[2017-10-16] MEDS ORDERED: ISOVUE-370 76% 100ML VIAL (Q9967) As Ordered (20:45)
[2017-10-16] MEDS: KETOROLAC 30 MG/ML VIAL (J1885) IV (20:50)
[2017-10-16 22:32] LABS: KETONE, URINE AUTO RFX NEGATIVE (NEGATIVE); NITRITE, URINE AUTO RFX NEGATIVE (NEGATIVE); RBC, URINE AUTO RFX 4 /HPF (0-3); SQUAM EPITHELIAL CELL UR AURFX 1 /HPF (0-6); WBC, URINE AUTO RFX 8 /HPF (0-3)
[2017-10-16 22:33] LABS: LEUKOCYTE ESTERASE UR AUTO RFX TRACE (NEGATIVE)
[2017-10-16] MEDS: MORPHINE 2 MG/ML 1ML SYRINGE (J2270) IV (23:31)
[2017-10-16 23:38] LABS: CHLAMYDIA DNA AMPLIFICATION NEGATIVE (NEGATIVE); GC DNA AMPLIFICATION NEGATIVE (NEGATIVE)
[2017-10-16] MEDS ORDERED: metroNIDAZOLE (FLAGYL) 500 MG TAB PO ×2 (23:45)
[2017-10-17] MEDS: cefTRIAXone SOD 250 MG VIAL (J0696) IM (00:03)
[2017-10-17] MEDS: metroNIDAZOLE (FLAGYL) 500 MG TAB PO (00:03)
[2017-10-17] MEDS: AZITHROMYCIN 250 MG TAB PO (00:03)
== END 2017-10-17 00:39 | disposition home or self-care (01) ==
LOC: M ED 10-17 00:39
DX: A59.09 Other urogenital trichomoniasis (principal); Z87.440 Personal history of urinary (tract) infections; Z87.442 Personal history of urinary calculi; Z91.018 Allergy to other foods; Z91.040 Latex allergy status; J30.89 Other allergic rhinitis
CPT/HCPCS: J2270

== ENCOUNTER 2018-03-03 12:15 | Emergency (ER) | payer OTHER ==
[2018-03-03 12:57] LABS: BASO # 0.1 10^3/uL (0.0-0.2); BASO % 0.7 % (0.0-1.0); EOS # 0.7 10^3/uL (0.0-0.50); EOS % 8.5 % (0.0-3.0); HEMATOCRIT 37.1 % (36.0-47.0); HEMOGLOBIN 12.3 g/dl (12.0-15.5); IMMATURE GRANULOCYTE % 0.1 % (0-3.0); LYMPH # 3.1 10^3/uL (1.5-4.5); LYMPH % 37.7 % (24.0-44.0); MEAN CORPUSCULAR HEMOGLOBIN 30.1 pg (27.0-33.0); MEAN CORPUSCULAR HGB CONC 33.2 g/dl (32.0-36.5); MEAN CORPUSCULAR VOLUME 90.9 fl (80.0-96.0); MONO # 0.9 10^3/uL (0.0-0.8); MONO % 10.5 % (0.0-5.0); NEUTROPHILS # 3.4 10^3/uL (1.8-7.7); NEUTROPHILS % 42.5 % (36.0-66.0); PLATELET COUNT, AUTOMATED 299 10^3/uL (150-450); RED BLOOD COUNT 4.08 10^6/uL (4.00-5.40); RED CELL DISTRIBUTION WIDTH 15.3 % (11.5-14.5); WHITE BLOOD COUNT 8.1 10^3/uL (4.0-10.0)
[2018-03-03 13:46] LABS: ALBUMIN 3.8 GM/DL (3.2-5.2); ALBUMIN/GLOBULIN RATIO 1.12 (1.00-1.93); ALKALINE PHOSPHATASE 47 U/L (45-117); ALT/SGPT 16 U/L (12-78); ANION GAP 6 MEQ/L (8-16); AST/SGOT 12 U/L (7-37); BILIRUBIN,TOTAL 0.4 MG/DL (0.2-1.0); BLOOD UREA NITROGEN 10 MG/DL (7-18); CALCIUM LEVEL 8.6 MG/DL (8.5-10.1); CARBON DIOXIDE LEVEL 26 MEQ/L (21-32); CHLORIDE LEVEL 110 MEQ/L (98-107); CREATININE FOR GFR 0.82 MG/DL (0.55-1.30); GLOMERULAR FILTRATION RATE > 60.0 (>60); GLUCOSE, FASTING 87 MG/DL (70-100); POTASSIUM SERUM 3.8 MEQ/L (3.5-5.1); SODIUM LEVEL 142 MEQ/L (136-145); TOTAL PROTEIN 7.2 GM/DL (6.4-8.2)
[2018-03-03 14:11] LABS: HEPATITIS C VIRUS ABY INDEX 0.1 INDEX (<0.8)
[2018-03-03 14:11] LABS: HEPATITIS B SURFACE ANTIBODY NEGATIVE (POSITIVE); HEPATITIS B SURFACE ANTIGEN NEGATIVE (NEGATIVE)
[2018-03-03 14:28] LABS: CONTROL LINE HCG INT CTR LINE PRESENT; HCG, SERUM QUALITATIVE NEGATIVE (NEGATIVE)
[2018-03-03] MEDS: EXPOSURE KIT-ADULT 7 DAY SUPPLY PO (15:23)
[2018-03-03 20:53] LABS: HIV SCREEN CENTAUR EXPOSED NEGATIVE (NEGATIVE)
== END 2018-03-03 15:34 | disposition home or self-care (01) ==
LOC: M ED 12:15
DX: S61.233A Puncture wound without foreign body of left middle finger without damage to nail, initial encounter (principal); Z77.21 Contact with and (suspected) exposure to potentially hazardous body fluids; W46.1XXA Contact with contaminated hypodermic needle, initial encounter; Y92.9 Unspecified place or not applicable; Y93.9 Activity, unspecified; Y99.9 Unspecified external cause status; J45.909 Unspecified asthma, uncomplicated; K21.9 Gastro-esophageal reflux disease without esophagitis; Z79.899 Other long term (current) drug therapy; Z91.040 Latex allergy status; Z91.018 Allergy to other foods; J30.89 Other allergic rhinitis
CPT/HCPCS: 80053

== ENCOUNTER 2018-10-15 11:08 | Emergency (ER) | payer MEDICAID, OTHER, SELFPAY ==
[~2018-10-15] VITALS: Ht 167.6 cm; Wt 81.8 kg
[~2018-10-15 11:08] MED LIST changes: -/MOM400 PO; +ACET-716 PO; -ACET30TAB PO; -ACET50TA PO; +ADVI200C5 PO; -DOCU10ELUD PO; +DOCU5LIQ PO; +MAPA500T2 PO; +MILK10SU PO; +RALT40TA PO; +TRUVTAB PO; +ZOFR4TAB14 PO; -ZOFR4TAB3 PO; +[UNRECOGNIZED DRUG - OTHER]
[2018-10-15 11:50] LABS: HEMOGLOBIN 13.3 g/dl (12.0-15.5); MEAN CORPUSCULAR HEMOGLOBIN 30.9 pg (27.0-33.0); MEAN CORPUSCULAR HGB CONC 32.4 g/dl (32.0-36.5); MEAN CORPUSCULAR VOLUME 95.1 fl (80.0-96.0); PLATELET COUNT, AUTOMATED 287 10^3/uL (150-450); RED BLOOD COUNT 4.31 10^6/uL (4.00-5.40); WHITE BLOOD COUNT 7.8 10^3/uL (4.0-10.0)
[2018-10-15] MEDS ORDERED: ACETAMINOPHEN TAB 650MG DOSE (2X325MG) PO ONE (12:00)
[2018-10-15] MEDS ORDERED: KETOROLAC 30 MG/ML VIAL (J1885) IV ONE (12:30)
--- NOTE | 2018-10-15 13:25 | REP ---
PELVIC ULTRASOUND: Real-time sonographic evaluation of the pelvis performed utilizing transabdominal technique. Bladder measures 6.2 x 3.3 x 4.9 cm. Uterus measures 9.3 x 4.8 x 5.4 cm. Endometrial thickness is 10 mm. No endometrial fluid collection is seen. The ovaries appear normal in size and echotexture, right ovary measuring 3.5 x 1.9 x 2.0 cm and left ovary 3.3 x 2.3 x 2.6 cm. There is no evidence of adnexal mass or free fluid. There is no torsion of either ovary, RI right ovary 0.67 and left ovary 0.65 with duplex Doppler evaluation. Patient declined endovaginal ultrasound. IMPRESSION: Negative transabdominal pelvic ultrasound. Patient declined endovaginal exam. Electronically Signed by Phuc Garrison MD 10/18/2018 01:36 P
[2018-10-15 13:47] VITALS: BP 123/82
== END 2018-10-15 13:48 | disposition home or self-care (01) ==
LOC: M ED 11:08 → EDBD 11:08 → M ED 13:48
DX: N94.6 Dysmenorrhea, unspecified (principal); J30.2 Other seasonal allergic rhinitis; Z79.899 Other long term (current) drug therapy; Z91.018 Allergy to other foods; Z91.040 Latex allergy status
CPT/HCPCS: 36415; 76856; 84702; 85027; 86850; 86900; 86901; 93976; 96374; 99284; J1885

== ENCOUNTER 2020-01-18 10:15 | Emergency (ER) | payer OTHER, SELFPAY ==
[2020-01-18] MEDS ORDERED: MORPHINE 4 MG/ML 1ML VIAL/SYRINGE (J2270) ONE (11:16)
[2020-01-18] MEDS ORDERED: ONDANSETRON 4MG/2ML VIAL As Ordered ONE (11:16)
[2020-01-18] MEDS ORDERED: ONDANSETRON 4MG/2ML VIAL ONE (11:16)
[2020-01-18] MEDS ORDERED: MORPHINE 4 MG/ML 1ML VIAL/SYRINGE (J2270) As Ordered ONE (11:16)
[2020-01-18] MEDS ORDERED: HALOPERIDOL 5MG/ML VIAL (J1630 PER 1) As Ordered ONE (12:30)
[2020-01-18] MEDS ORDERED: HALOPERIDOL 5MG/ML VIAL (J1630 PER 1) ONE (12:30)
[2020-01-18] MEDS ORDERED: KETOROLAC 30 MG/ML 1ML VIAL ONE (15:31)
[2020-01-18] MEDS ORDERED: KETOROLAC 30 MG/ML 1ML VIAL As Ordered ONE (15:31)
[2020-02-26 08:12] LABS: APPEARANCE, URINE CLEAR (CLEAR); BACTERIA, URINE AUTO NEGATIVE (NEGATIVE); BILIRUBIN, URINE AUTO NEGATIVE (NEGATIVE); BLOOD, URINE BLOOD NEGATIVE (NEGATIVE); COLOR, URINE YELLOW (YELLOW); GLUCOSE, URINE (UA) AUTO NEGATIVE (NEGATIVE); KETONE, URINE AUTO 1+ mg/dL (NEGATIVE); LEUKOCYTE ESTERASE, URINE AUTO TRACE (NEGATIVE); MUCUS, URINE SMALL (NEGATIVE); NITRITE, URINE AUTO NEGATIVE (NEGATIVE); PROTEIN, URINE AUTO 1+ mg/dL (NEGATIVE); RBC, URINE AUTO 7 /HPF (0-3); SPECIFIC GRAVITY URINE AUTO 1.016 (1.002-1.035); SQUAMOUS EPITHELIAL CELL UR AU 1 /HPF (0-6); UROBILINOGEN, URINE AUTO 0.2 mg/dL (0.0-2.0); WBC, URINE AUTO 14 /HPF (0-3)
[2020-02-26 09:16] LABS: BASO # 0.1 10^3/uL (0.0-0.2); BASO % 0.6 % (0.0-1.0); EOS # 0.7 10^3/uL (0.0-0.5); EOS % 6.2 % (0.0-3.0); HEMATOCRIT 40.4 % (36.0-47.0); HEMOGLOBIN 13.6 g/dl (12.0-15.5); LYMPH # 2.9 10^3/uL (1.5-5.0); LYMPH % 25.9 % (24.0-44.0); MEAN CORPUSCULAR HEMOGLOBIN 31.1 pg (27.0-33.0); MEAN CORPUSCULAR HGB CONC 33.7 g/dl (32.0-36.5); MEAN CORPUSCULAR VOLUME 92.2 fl (80.0-96.0); MONO # 1.1 10^3/uL (0.0-0.8); MONO % 9.8 % (0.0-5.0); NEUTROPHILS # 6.4 10^3/uL (1.5-8.5); NEUTROPHILS % 57.2 % (36.0-66.0); PLATELET COUNT, AUTOMATED 350 10^3/uL (150-450); RED BLOOD COUNT 4.38 10^6/uL (4.00-5.40); WHITE BLOOD COUNT 11.3 10^3/uL (4.0-10.0)
[2020-02-27 21:13] LABS: BLOOD UREA NITROGEN 11 MG/DL (7-18); CALCIUM LEVEL 8.8 MG/DL (8.5-10.1); CARBON DIOXIDE LEVEL 25 MEQ/L (21-32); CHLORIDE LEVEL 111 MEQ/L (98-107); CREATININE FOR GFR 0.86 MG/DL (0.55-1.30); GLOMERULAR FILTRATION RATE > 60.0 (>60); GLUCOSE, FASTING 94 MG/DL (70-100); POTASSIUM SERUM 3.7 MEQ/L (3.5-5.1); SODIUM LEVEL 142 MEQ/L (136-145)
[2020-02-27 21:24] LABS: AMPHETAMINES LEVEL URINE NEGATIVE (NEGATIVE); BARBITURATES URINE NEGATIVE (NEGATIVE); BENZODIAZEPINES URINE NEGATIVE (NEGATIVE); CANNABINOIDS URINE POSITIVE (NEGATIVE); COCAINE METABOLITE URINE NEGATIVE (NEGATIVE); METHADONE URINE NEGATIVE (NEGATIVE); OPIATES URINE POSITIVE (NEGATIVE); PHENCYCLIDINE URINE NEGATIVE (NEGATIVE)
[2020-02-27 21:27] LABS: HCG, SERUM QUALITATIVE NEGATIVE (NEGATIVE)
--- NOTE | 2020-03-09 08:05 | REP ---
CT OF THE ABDOMEN AND PELVIS WITHOUT CONTRAST: HISTORY: Left renal colic. TECHNIQUE: Axial noncontrast images from the lung bases to the pubic symphysis with coronal and sagittal reformations. FINDINGS: Evaluation is significantly limited by lack of contrast and paucity of intraperitoneal fat. Multiple calcifications in the pelvis likely represent phleboliths, although a 4 mm distal left ureteral calculus (image 128) cannot be excluded and should be correlated with physical examination and urinalysis. The kidneys are otherwise normal and without intrarenal calculi. Left renal hypodensity may represent cyst. The liver spleen, pancreas, gallbladder and bilateral adrenal glands are normal for noncontrast evaluation. The enteric system is without obstruction or acute inflammatory process. Further evaluation of the pelvis demonstrates age appropriate uterus/adnexa. No pelvic fluid or ascites. No free air. No obvious adenopathy. The abdominal aorta is without aneurysm. Musculoskeletal structures are intact. IMPRESSION: 1. Limited examination. 2. Possible 4 mm nonobstructing distal left ureteral calculus. Correlation with urinalysis and physical examination recommended. MTDD
== END 2020-01-18 16:00 | disposition home or self-care (01) ==
LOC: M ED 10:15
DX: F12.10 Cannabis abuse, uncomplicated (principal); R10.9 Unspecified abdominal pain; R11.10 Vomiting, unspecified; Z87.442 Personal history of urinary calculi; Z88.8 Allergy status to other drugs, medicaments and biological substances; Z91.040 Latex allergy status
CPT/HCPCS: 36415; 74176; 80048; 80307; 81001; 84703; 85025; 94640; 96374; 96375; 99283; J1630; J1885; J2270; J2405

== ENCOUNTER 2020-08-15 10:40 | Emergency (ER) | payer OTHER ==
[~2020-08-15] VITALS: Ht 170.2 cm; Wt 38.4 kg
[2020-08-15] MEDS ORDERED: ALBU83IN INH (10:59)
--- OUTSIDE RECORDS SUMMARY | 2020-08-15 11:30 | CCD ---
Author Author [facility] Organization [facility] Address Unknown Phone Unavailable Care Team Providers Care Photograph Inspector Name Role Phone Beverly Hazel Unavailable Unavailable Re-disclosure Warning The records that you are about to access may contain information from federally-assisted alcohol or drug abuse programs. If such information is present, then the following federally mandated warning applies: This information has been disclosed to you from records protected by federal confidentiality rules (42 CFR part 2). The federal rules prohibit you from making any further disclosure of this information unless further disclosure is expressly permitted by the written consent of the person to whom it pertains or as otherwise permitted by 42 CFR part 2. A general authorization for the release of medical or other information is NOT sufficient for this purpose. The Federal rules restrict any use of the information to criminally investigate or prosecute any alcohol or drug abuse patient.The records that you are about to access may contain highly sensitive health information, the redisclosure of which is protected by Article 27-F of the [place] State Public Health law. If you continue you may have access to information: Regarding HIV / AIDS; Provided by facilities licensed or operated by the [facility] Office of Mental Health; or Provided by the [facility] Office for People With Developmental Disabilities. If such information is present, then the following [facility] mandated warning applies: This information has been disclosed to you from confidential records which are protected by state law. State law prohibits you from making any further disclosure of this information without the specific written consent of the person to whom it pertains, or as otherwise permitted by law. Any unauthorized further disclosure in violation of state law may result in a fine or custodial sentence or both. A general authorization for the release of medical or other information is NOT sufficient authorization for further disc losure. Encounters Encounter Providers Location Date Indications Data Source(s ) Outpatient Attender: [facility] 01/16/2020 12:02:16 [facility] Outpatient Attender: [facility] 10/24/2019 02:17:00 [facility] Outpatient Attender: [facility] 08/25/2019 09:10:00 A [facility] Outpatient Attender: [facility] 08/18/2019 01:20:00 P M [facility] Medications Medication Brand Name Start Date Product Form Dose Route Admi nistrative Instructions Pharmacy Instructions Status Indications Reaction Description Data Source(s) 2.5 mg /3 mL (0.083 %) 01/14/2020 12:00:00 AM EDT solu tion for nebulization 150 INHALE THE CONTENTS OF 1 VIAL VIA NEBULI ZER FOUR TIMES DAILY INHALE THE CONTENTS OF 1 VIAL VIA NEBULIZER FOUR TIMES DAILY SOLD: 03/09/2020 [facility] 90 mcg/actuation 01/14/2020 12:00:00 AM EDT HFA aerosol inha ler 18 INHALE 3 PUFFS BY MOUTH FOUR TIMES DAILY INHALE 3 PUFFS BY MOUTH FOUR TIMES DAILY SOLD: 01/14/2020 [facility] 20 mg 01/14/2020 12:00:00 AM EDT tablet 10 TAKE 1 TABLET TWICE DAILY FOR 5 DAYS TAKE 1 TABLET TWICE DAILY FOR 5 DAYS SOLD: 01/14/2020 [facility] 2.5 mg /3 mL (0.083 %) 01/14/2020 12:00:00 AM EDT solu tion for nebulization 150 INHALE THE CONTENTS OF 1 VIAL VIA NEBULI ZER FOUR TIMES DAILY INHALE THE CONTENTS OF 1 VIAL VIA NEBULIZER FOUR TIMES DAILY SOLD: 01/14/2020 [facility] 90 mcg/actuation 01/14/2020 12:00:00 AM EDT HFA aerosol inha ler 18 INHALE 3 PUFFS BY MOUTH FOUR TIMES DAILY INHALE 3 PUFFS BY MOUTH FOUR TIMES DAILY SOLD: 03/09/2020 [facility] 1.5 mg 11/26/2019 12:00:00 AM EDT tablet 1 USE A S DIRECTED, ON BOX USE DIRECTED, ON BOX SOLD: 11/26/2019 [facility] Insurance Providers Payer name Policy type / Coverage type Policy ID Covered green party ID Covered green party's relationship to mi Policy Mi Plan Information [facility] [id number] SP [id number] [facility] O [id number] S [id number] SELF PAY ONLY [id number] SP [id number] MEDICAID [id number] SP [id number] [facility] [id number] SP [id number] [id number] SP [id number] [place] INN [id number] SP [id number] RAM[place] INN [id number] SP [id number] [facility] COMM[facility] [id number] SP [id number] [facility] COMM[facility] [id number] SP [id number] [facility] COMM[facility] [id number] SP [id number] [facility] [id number] SP [id number] MEDICAID [id number] SP [id number] SELF PAY UNAVAILABLE SP [employer]NA[employer]A [employer] [place] PLAN [id number] SP [id number] [facility] [place] [id number] SP [id number]
[2020-08-15] MEDS ORDERED: NS 500 ML IV ONE (13:15)
--- NOTE | 2020-08-15 13:37 | REP ---
INDICATION: DYSPNEA/COUGH. COMPARISON: Comparison chest x-ray April 16, 2017. TECHNIQUE: Portable upright AP chest radiograph. FINDINGS: The lungs are well inflated and free of infiltrate. Pleural angles are sharp. Heart size is normal. Pulmonary vasculature is not increased. Monitoring electrodes are present. IMPRESSION: No active disease. <Electronically signed by Primitivo Knight > 08/15/20 [id number]
[2020-08-15] MEDS: ALBUTEROL 90 MCG/ACT 8GM HFA INHALER INH SCH ×3 (13:55→14:22)
[2020-08-15 14:01] LABS: BASO # 0.1 10^3/uL (0.0-0.2); BASO % 0.4 % (0.0-1.0); EOS # 0.8 10^3/uL (0.0-0.5); EOS % 6.9 % (0.0-3.0); HEMATOCRIT 39.8 % (36.0-47.0); HEMOGLOBIN 13.3 g/dl (12.0-15.5); LYMPH # 2.6 10^3/uL (1.5-5.0); LYMPH % 21.4 % (24.0-44.0); MEAN CORPUSCULAR HEMOGLOBIN 30.5 pg (27.0-33.0); MEAN CORPUSCULAR HGB CONC 33.4 g/dl (32.0-36.5); MEAN CORPUSCULAR VOLUME 91.3 fl (80.0-96.0); MONO # 1.3 10^3/uL (0.0-0.8); MONO % 10.5 % (2.0-8.0); NEUTROPHILS # 7.2 10^3/uL (1.5-8.5); NEUTROPHILS % 60.5 % (36.0-66.0); PLATELET COUNT, AUTOMATED 337 10^3/uL (150-450); RED BLOOD COUNT 4.36 10^6/uL (4.00-5.40)
[2020-08-15 14:31] LABS: ALBUMIN 3.7 GM/DL (3.2-5.2); ALT/SGPT 37 U/L (12-78); BILIRUBIN,DIRECT 0.2 MG/DL (0.0-0.2); BILIRUBIN,TOTAL 0.7 MG/DL (0.2-1.0); BLOOD UREA NITROGEN 9 MG/DL (7-18); CALCIUM LEVEL 9.2 MG/DL (8.5-10.1); CARBON DIOXIDE LEVEL 22 MEQ/L (21-32); CHLORIDE LEVEL 108 MEQ/L (98-107); CREATININE FOR GFR 0.67 MG/DL (0.55-1.30); GLOMERULAR FILTRATION RATE > 60.0 (>60); GLUCOSE, FASTING 79 MG/DL (70-100); SODIUM LEVEL 138 MEQ/L (136-145); TOTAL PROTEIN 7.5 GM/DL (6.4-8.2)
[2020-08-15 14:36] LABS: INR 0.99; PROTHROMBIN TIME 13.3 SECONDS (12.5-14.3)
[2020-08-15 14:37] LABS: ABG BASE EXCESS -3.7 (-2.0-2.0); ABG HCO3 19.1 MEQ/L (22.0-26.0); ABG O2 SATURATION 95.5 % (95.0-99.0); ABG PARTIAL PRESSURE CO2 28.4 mmHg (35.0-45.0); ABG PARTIAL PRESSURE O2 72.8 mmHg (75.0-100.0); ABG STANDARD HCO3 21.4 MEQ/L (22.0-26.0); ABG TOTAL CO2 19.9 MEQ/L (22.0-29.0); ABG pH (ARTERIAL) 7.445 UNITS (7.350-7.450)
[2020-08-15 15:15] VITALS: BP 146/88
[2020-08-15] MEDS ORDERED: PROAAER10 INH (15:45)
== END 2020-08-15 15:52 | disposition home or self-care (01) ==
LOC: M ED 10:40 → EDSEX 10:40 → EDBD 10:40 → M ED 15:52
DX: J45.901 Unspecified asthma with (acute) exacerbation (principal); F17.200 Nicotine dependence, unspecified, uncomplicated; Z79.51 Long term (current) use of inhaled steroids

== ENCOUNTER 2020-11-25 10:03 | Inpatient (IN) | payer OTHER ==
[~2020-11-25] VITALS: Ht 167.6 cm; Wt 93.8 kg
[~2020-11-25 10:03] MED LIST changes: +EMTR1TAB16 PO; +PROAAER10 INH; -TRUVTAB PO; +VENTAER INH
[2020-11-25] MEDS ORDERED: ALBUTEROL SULFATE 2.5 MG/0.5 ML INH NEB SOLN INH ONE (10:10)
[2020-11-25] MEDS ORDERED: IPRATROPIUM 0.5MG/ALBUTEROL 2.5MG INH SOL UD 3ML (DUONEB) NEB ONE (10:10)
[2020-11-25 10:41] LABS: BASO # 0.1 10^3/uL (0.0-0.2); BASO % 0.7 % (0.0-1.0); EOS # 0.4 10^3/uL (0.0-0.5); EOS % 3.8 % (0.0-3.0); HEMATOCRIT 43.3 % (36.0-47.0); HEMOGLOBIN 13.9 g/dl (12.0-15.5); LYMPH # 2.6 10^3/uL (1.5-5.0); LYMPH % 22.1 % (24.0-44.0); MEAN CORPUSCULAR HGB CONC 32.1 g/dl (32.0-36.5); MEAN CORPUSCULAR VOLUME 93.3 fl (80.0-96.0); MONO # 1.7 10^3/uL (0.0-0.8); MONO % 14.8 % (2.0-8.0); NEUTROPHILS # 6.8 10^3/uL (1.5-8.5); NEUTROPHILS % 58.2 % (36.0-66.0); PLATELET COUNT, AUTOMATED 381 10^3/uL (150-450); RED BLOOD COUNT 4.64 10^6/uL (4.00-5.40)
[2020-11-25 11:05] LABS: ALBUMIN 3.7 GM/DL (3.2-5.2); ALT/SGPT 12 U/L (12-78); BILIRUBIN,DIRECT 0.2 MG/DL (0.0-0.2); BILIRUBIN,TOTAL 0.5 MG/DL (0.2-1.0); CK-MB VALUE MASS < 1.0 NG/ML (<3.6); CPK CREATINE PHOSPHOKINASE 151 U/L (26-192); MB/CK RELATIVE INDEX 0.66 (< OR =4); NT-PRO BNP 26 PG/ML (<125); THYROXINE (T4) 9.3 UG/DL (4.5-12.0); TOTAL PROTEIN 8.3 GM/DL (6.4-8.2); TROPONIN I < 0.02 NG/ML (< 0.10)
[2020-11-25 11:11] LABS: WHITE BLOOD COUNT 11.7 10^3/uL (4.0-10.0)
[2020-11-25] MEDS: COMBIVENT RESPIMAT 100-20MCG INHALER 4GM INH SCH ×3 (11:36→12:29)
[2020-11-25] MEDS ORDERED: ISOVUE-370 76% 100ML VIAL As Ordered ONE (11:51)
--- NOTE | 2020-11-25 12:01 | REP ---
INDICATION: DYSPNEA/COUGH COMPARISON: 08/15/2020 TECHNIQUE: Portable AP view of the chest FINDINGS: The mediastinum and cardiac silhouette are stable and within normal limits for portable technique. The lung king are clear without focal consolidation, effusion, or pneumothorax. Skeletal structures are intact. IMPRESSION: No obvious focal consolidation or effusion. <Electronically signed by Champ Camargo > 11/25/20 [id number]
[2020-11-25] MEDS ORDERED: IPRATROPIUM 0.5MG/ALBUTEROL 2.5MG INH SOL UD 3ML (DUONEB) NEB PRN (12:20)
--- NOTE | 2020-11-25 12:39 | REP ---
INDICATION: sob COMPARISON: None. TECHNIQUE: Axial contrast enhanced images from the thoracic inlet to the upper abdomen using pulmonary embolus technique with multiplanar re-formations. 75 ml Isovue 370 intravenous contrast material administered without complication. This CT examination was performed using the following dose reduction techniques: Automated exposure control, adjustment of mA and/or kv according to the patient's size, and use of iterative reconstruction technique. FINDINGS: Findings suggest pulmonary emboli to the right upper lobe 2nd and 3rd order branches. Diffuse bilateral alveolar infiltrates are appreciated as well as small amounts of mucous plugging extending primarily to the right lower lobe and to a lesser extent left lower lobe and right upper lobe. Associated reactive adenopathy is appreciated. No effusion. No pneumothorax. Thoracic aorta and heart/pericardium are normal. Visualized thyroid gland is unremarkable. Surrounding musculoskeletal structures are intact. Limited upper abdomen demonstrates normal bilateral adrenal glands. IMPRESSION: 1. Mild to moderate pulmonary emboli to the right upper lobe. 2. Small but significant scattered bilateral multifocal alveolar infiltrates with elements of mucous plugging and adenopathy. Findings are consistent with multifocal pneumonia. <Electronically signed by Champ Camargo > 11/25/20 [id number]
[2020-11-25] MEDS ORDERED: MIRALAX *UNIT DOSE* 17GM PACKET PO PRN (12:40)
--- NOTE | 2020-11-25 12:42 | HPEPDOC ---
General Date of Admission Nov 25, 2020 at 12:06 Date of Service: Nov 25, 2020 Chief Complaint The patient is a 35-year-old female admitted with a reason for visit of Acute Respiratory Failure With Hypoxia, Asthma Exa. Source: Patient History of Present Illness Mrs. Patel is a 35-year-old female with asthma who presents with dyspnea for the past 2 days. Before today, she was in good health. Then, 2 days ago she is cleaning with Clorox wipe. It started her asthma exacerbation. She took her albuterol inhaler which helped a little but did not resolve her dyspnea. She's had her asthma exacerbation started by these Clorox wipes in the past, but has always responded to her rescue inhaler. Her breathing didn't improve yesterday. Today she is brought in by ambulance for acute hypoxic respiratory failure. She is given 10 mg of Decadron, multiple breathing treatments, and put on CPAP. There is able to wean her down to 2 L of oxygen. She is hypoxic with a VBG of 58. When I saw her, she was afebrile. She was tachycardic and tachypneic. She required 2 L of oxygen. She could not complete full sentences. She still feels short of breath and still has chest tightness. She has a productive cough with yellow sputum. Otherwise she is wheezy on exam. Patient will be admitted first acute hypoxic respiratory failure and asthma exacerbation Home Medications Scheduled PRN Albuterol Sulf (Albuterol Sulfate) 2.5 Mg/3 Ml Vial.neb, 1 VIAL INH QID PRN for SHORTNESS OF BREATH, (Reported) Albuterol Sulfate (Ventolin Hfa) 108 Mcg/Act Aer, 2 PUFF INH Q4H PRN for SOB/WHEEZING, (Reported) Allergies Coded Allergies: latex (Verified Allergy, Intermediate, 10/15/18) ENVIROMENTAL (Verified Allergy, Mild, GRASS,OROZCO,DUST, 12/10/09) Kiwi (Verified Allergy, Mild, LIPS/TONGUE BURN/SWELL, 12/10/09) Past Medical History Medical History 1. Nephrolithiasis 2. Bipolar 3. depression 4. Asthma 5. Seasonal allergies Surgical History None documented Family History Father: Patient denies knowledge of medical history in father Mother: History of high blood pressure Social History * Smoker: current smoker Alcohol: Denies Drugs: marijuana A-FIB/CHADSVASC A-FIB History Current/History of A-Fib/PAF?: No Review of Systems Constitutional: Reports: Chills, Fever (subjective fever) Eyes: Denies: Vision change ENT: Denies: Sore Throat Skin: Denies: Rash Pulmonary: Reports: Dyspnea, Cough (yellow sputum) Cardiovascular: Reports: Chest Pain (constant chest tightness for the past 2 days) Gastrointestinal: Reports: Constipation; Denies: Nausea, Abdominal Pain Genitourinary: Denies: Dysuria Hematologic: Denies: Bruising Neurological: Reports: Numbness (chronic in her legs) Psych: Reports: Anxiety Physical Examination General Exam: Positive: Alert, Cooperative, Mild Distress Eye Exam: Positive: EOMI; Negative: Sclera icteric ENT Exam: Positive: Atraumatic Neck Exam: Positive: Supple Chest Exam: Positive: Wheezing, Diminished Heart Exam: Positive: Tachycardic, Regular Rhythm Abdomen Exam: Positive: Normal bowel sounds, Soft; Negative: Tenderness Extremity Exam: Negative: Edema Neuro Exam: Positive: Cranial Nerves 3-12 NL Psych Exam: Positive: Anxiety Vital Signs Vital Signs Date Time Temp Pulse Resp B/P (MAP) Pulse Ox O2 Delivery O2 Flow Rate FiO2 11/25/20 10:32 Nasal Cannula 2.0 11/25/20 10:25 113 21 11/25/20 10:07 98.4 129/85 96 Laboratory Data Labs 24H Laboratory Tests 2 11/25/20 10:24: Immature Granulocyte % (Auto) 0.4, Neutrophils (%) (Auto) 58.2, Lymphocytes (%) (Auto) 22.1L, Monocytes (%) (Auto) 14.8H, Eosinophils (%) (Auto) 3.8H, Basophils (%) (Auto) 0.7, Neutrophils # (Auto) 6.8, Lymphocytes # (Auto) 2.6, Monocytes # (Auto) 1.7H, Eosinophils # (Auto) 0.4, Basophils # (Auto) 0.1, Nucleated Red Blo od Cells % (auto) 0.0, Lactic Acid Level 1.0, Total Bilirubin 0.5, Direct Bilirubin 0.2, Aspartate Amino Transf (AST/SGOT) 8, Alanine Aminotransferase (ALT/SGPT) 12, Alkaline Phosphatase 77, Total Creatine Kinase 151, Creatine Kinase MB < 1.0, Creatine Kinase MB Relative Index 0.66, Troponin I < 0.02, CV-Cnx-Q-Type Natriuretic Peptide 26, Total Protein 8.3H, Albumin 3.7, Albumin/Globulin Ratio 0.8L, Thyroid Stimulating Hormone (TSH) 1.000, Thyroxine (T4) 9.3 11/25/20 10:28: POC Glucose (Misc Panel) 94, POC Sodium (Misc Panel) 141, POC Potassium (Misc Panel) 3.7, POC Chloride (Misc Panel) 105, POC Total CO2 (Misc Panel) 27.0, POC Blood Urea Nitrogen (Misc Panel 10, POC Ionized Calcium (Misc Panel) 5.0, POC Creatinine (Misc Panel) 1.0, POC Hematocrit (Misc Panel) 46.0 11/25/20 10:29: POC Beta HCG, Quantitative < 5.0 11/25/20 10:32: POC Total CO2 (Misc Panel) 23.0, POC pH (Misc Panel) 7.413, POC Base Excess (Misc Panel) -2.0, POC Saturated Percent O2 (Misc) 91L, POC pO2 (Misc Panel) 58.0L, POC pCO2 (Misc Panel) 34.9L, POC HCO3 (Misc Panel) 22.3 CBC/BMP Laboratory Tests 11/25/20 10:24 Microbiology Microbiology 11/25/20 Respiratory Virus Panel (PCR) ([facility] [place]) - Final, Complete Assessment/Plan Mrs. Patel is a 35-year-old female with asthma who presents with dyspnea for the past 2 days. Patient was found to have acute hypoxic respiratory failure and initially required CPAP. With 10 of Decadron and multiple breathing treatments she is weaned down to nasal cannula. Patient will be given IV steroids and scheduled breathing treatments. Patient doesn't that she does not have a primary. On discharge patient may benefit from a inhaled corticosteroid Plan / VTE VTE Prophylaxis Ordered?: Yes Plan Plan 1. Acute hypoxic respiratory failure VBG PO2 was 58 Patient initially required CPAP Secondary to acute asthma exacerbation 2. Acute asthma exacerbation Secondary to Clorox wipes and continued smoking These wipes have caused problems for her in the past but never this severe Recommended that she finds a different disinfectant or cleaning method IV steroids and scheduled breathing treatments Patient would benefit from having a PCP. Patient may benefit from inhaled corticosteroids on discharge When stable patient should have PFTs outpatient 3. Constipation Last bowel movement was 2 days ago Colace and when necessary MiraLAX 4. DVT prophylaxis Lovenox Disposition: Pending clinical improvement BETTYE ALEGRIA DO Nov 25, 2020 12:42
[2020-11-25] MEDS: methylPREDNISolone 125MG 2ML VIAL IV SCH (13:16)
[2020-11-25 14:20] VITALS: BP 133/85
[2020-11-25] MEDS: IPRATROPIUM 0.5MG/ALBUTEROL 2.5MG INH SOL UD 3ML (DUONEB) NEB SCH ×3 (14:45→23:56)
[2020-11-25 15:10] LABS: INR 0.96
[2020-11-25 15:11] LABS: PARTIAL THROMBOPLASTIN TIME 29.2 SECONDS (24.2-38.5)
[2020-11-25 15:23] LABS: BLOOD UREA NITROGEN 11 MG/DL (7-18); CALCIUM LEVEL 9.7 MG/DL (8.5-10.1); CARBON DIOXIDE LEVEL 23 MEQ/L (21-32); CHLORIDE LEVEL 107 MEQ/L (98-107); CREATININE FOR GFR 0.82 MG/DL (0.55-1.30); GLOMERULAR FILTRATION RATE > 60.0 (>60); GLUCOSE, FASTING 132 MG/DL (70-100); SODIUM LEVEL 139 MEQ/L (136-145)
[2020-11-25] MEDS: AZITHROMYCIN INJ 500 MG, VIAL MATE ADAPTER 1 EACH in NS 250 ML IV SCH (15:59)
[2020-11-25] MEDS: cefTRIAXone SOD 1 GM in D5W MINI-BAG PLUS 50 ML IV SCH (15:59)
[2020-11-25 16:00] VITALS: BP 132/90
[2020-11-25] MEDS: ACETAMINOPHEN TAB 650MG DOSE (2X325MG) PO PRN ×2 (17:19→22:55)
--- NOTE | 2020-11-25 19:27 | ECGEPIP ---
[facility] - ED Test Date: 2020-11-25 Pat Name: NINA AGUSTIN Department: Room: - Gender: Female Fashion Designer: keaton : 1985 Requested By: Reinier Hernandez Order Number: [id number] Reading MD: Reinier Hernandez Measurements Intervals [place] Rate: 116 P: 78 MS: 142 QRS: 76 QRSD: 78 T: 61 QT: 326 QTc: 453 Interpretive Statements Sinus tachycardia Right atrial enlargement Nonspecific ST T wave changes Delayed R wave progression No prior ECG for comparison Electronically Signed on 11-25-2020 19:26:49 EDT by Reinier Hernandez
[2020-11-25 20:00] VITALS: BP 140/98
[2020-11-25] MEDS: APIXABAN 5 MG TAB (ELIQUIS) PO SCH (21:41)
[2020-11-25] MEDS: DOCUSATE SODIUM 100MG CAPSULE PO SCH (21:41)
[2020-11-26] VITALS: BP 125/67
[2020-11-26] MEDS: methylPREDNISolone 125MG 2ML VIAL IV SCH ×2 (00:34→13:09)
[2020-11-26] MEDS: IPRATROPIUM 0.5MG/ALBUTEROL 2.5MG INH SOL UD 3ML (DUONEB) NEB SCH ×4 (03:04→21:10)
[2020-11-26 04:00] VITALS: BP 115/71
[2020-11-26 05:39] LABS: HEMATOCRIT 40.2 % (36.0-47.0); HEMOGLOBIN 13.2 g/dl (12.0-15.5); MEAN CORPUSCULAR HEMOGLOBIN 30.1 pg (27.0-33.0); MEAN CORPUSCULAR HGB CONC 32.8 g/dl (32.0-36.5); MEAN CORPUSCULAR VOLUME 91.8 fl (80.0-96.0); PLATELET COUNT, AUTOMATED 392 10^3/uL (150-450); RED BLOOD COUNT 4.38 10^6/uL (4.00-5.40); WHITE BLOOD COUNT 14.7 10^3/uL (4.0-10.0)
[2020-11-26 05:53] LABS: BLOOD UREA NITROGEN 15 MG/DL (7-18); CALCIUM LEVEL 9.1 MG/DL (8.5-10.1); CARBON DIOXIDE LEVEL 22 MEQ/L (21-32); CHLORIDE LEVEL 108 MEQ/L (98-107); GLOMERULAR FILTRATION RATE > 60.0 (>60); GLUCOSE, FASTING 125 MG/DL (70-100); POTASSIUM SERUM 4.2 MEQ/L (3.5-5.1); SODIUM LEVEL 139 MEQ/L (136-145)
[2020-11-26 08:00] VITALS: BP 124/72
[2020-11-26] MEDS: APIXABAN 5 MG TAB (ELIQUIS) PO SCH ×2 (08:14→21:16)
[2020-11-26] MEDS: DOCUSATE SODIUM 100MG CAPSULE PO SCH ×2 (08:14→21:17)
[2020-11-26] MEDS: ACETAMINOPHEN TAB 650MG DOSE (2X325MG) PO PRN (08:26)
[2020-11-26] MEDS ORDERED: ENOXAPARIN 40MG/0.4ML SYRINGE (J1650 PER 10MG) SC SCH (09:00)
[2020-11-26 12:00] VITALS: BP 127/69
[2020-11-26] MEDS: AZITHROMYCIN INJ 500 MG, VIAL MATE ADAPTER 1 EACH in NS 250 ML IV SCH (13:09)
[2020-11-26] MEDS: cefTRIAXone SOD 1 GM in D5W MINI-BAG PLUS 50 ML IV SCH (14:33)
[2020-11-26 16:00] VITALS: BP 102/73
--- NOTE | 2020-11-26 17:36 | REP ---
INDICATION: Lower extremity pain, PE. COMPARISON: None. TECHNIQUE: Multiple ultrasonographic images of the deep venous structures of the bilateral lower extremity were obtained from the inguinal ligament to the ankle. Venous compression techniques, color doppler imaging, and augmentation techniques were also obtained where appropriate. As per the ACR guidelines the anterior tibial vein can not be effectively evaluated. Only compression techniques in the calf on the peroneal and posterior tibial veins was attempted/performed. FINDINGS: There is no abnormal echogenic material seen within any of the visualized deep venous structures that would suggest acute thrombosis. Coaptation is unremarkable throughout. Doppler interrogation shows an expected response to respiratory variability and augmentation in the thigh. Compression techniques in the calf showed no abnormality. The color flow images show what appears to be a normal vascular pattern throughout the thigh. IMPRESSION: There is no ultrasonographic evidence of deep venous thrombosis involving any of the visualized deep venous structures of the bilateral lower extremity as described above. <Electronically signed by Neal Mcneil > 11/26/20 [id number]
[2020-11-26 20:00] VITALS: BP 119/65
--- NOTE | 2020-11-26 20:30 | IPNPDOC ---
Subjective Date Seen The patient was seen on 11/26/20. Subjective Chief Complaint/HPI Mrs. Patel is a 35-year-old female with asthma who presents with dyspnea for the past 2 days. This morning, she was feeling better. Her dyspnea improved, but she still requires oxygen. Objective Physical Examination General Exam: Positive: Alert, Cooperative, Mild Distress Eye Exam: Positive: EOMI; Negative: Sclera icteric ENT Exam: Positive: Atraumatic Neck Exam: Positive: Supple Chest Exam: Positive: Wheezing, Diminished Heart Exam: Positive: Tachycardic, Regular Rhythm Abdomen Exam: Positive: Normal bowel sounds, Soft; Negative: Tenderness Extremity Exam: Negative: Edema Neuro Exam: Positive: Cranial Nerves 3-12 NL Psych Exam: Positive: Anxiety Assessment /Plan Assessment Mrs. Patel is a 35-year-old female with asthma who presents with dyspnea for the past 2 days. Patient was found to have acute hypoxic respiratory failure and initially required CPAP. With 10 of Decadron and multiple breathing treatments she is weaned down to nasal cannula. Patient will be given IV steroids and scheduled breathing treatments. Patient doesn't that she does not have a primary. Otherwise, she was found to have multifocal pneumonia. Started patient on ceftriaxone and azithromycin. Imaging also have PE. Patient is very active chasing her children around. This may be provoked although patient may need to her age appropriate screenings such as PAP smear. Plan/VTE VTE Prophylaxis Ordered?: Yes Plan 1. Acute hypoxic respiratory failure VBG PO2 was 58 Patient initially required CPAP Secondary to acute asthma exacerbation, multifocal pneumonia, and PE 2. Acute asthma exacerbation Secondary to Clorox wipes and continued smoking. Also from PE and pneumonia These wipes have caused problems for her in the past but never this severe Recommended that she finds a different disinfectant or cleaning method IV steroids and scheduled breathing treatments Patient would benefit from having a PCP. Patient may benefit from inhaled corticosteroids on discharge When stable patient should have PFTs outpatient 3. Multifocal pneumonia -Seen on CT angio chest -Ceftriaxone and Azithromycin day 2 4. PE -Seen on CT angio chest -Pulmonary embolic in the right upper lobe 5. Constipation Last bowel movement was 2 days ago Colace and when necessary MiraLAX 6. DVT prophylaxis Lovenox Disposition: Pending clinical improvement. Weaning off oxygen. VS, I&O, 24H, Fishbone Vital Signs/I&O Vital Signs Date Time Temp Pulse Resp B/P (MAP) Pulse Ox O2 Delivery O2 Flow Rate FiO2 11/26/20 16:00 98.2 111 22 102/73 (83) 90 Nasal Cannula 1.0 I&O- Last 24 Hours up to 6 AM 11/26/20 06:00 Intake Total 960 ml Output Total 200 ml Balance 760 ml Laboratory Data 24H LABS Laboratory Tests 2 11/25/20 20:45: 11/26/20 05:05: Nucleated Red Blood Cells % (auto) 0.0, Anion Gap 9, Glomerular Filtration Rate > 60.0, Calcium Level 9.1 CBC/BMP Laboratory Tests 11/26/20 05:05 Microbiology Microbiology 11/25/20 Gram Stain - Final, Resulted 11/25/20 Sputum Culture, Resulted Pending 11/25/20 Respiratory Virus Panel (PCR) ([facility]) - Final, Complete BETTYE ALEGRIA DO Nov 26, 2020 20:23
[2020-11-27] VITALS: BP 107/56
[2020-11-27] MEDS: methylPREDNISolone 125MG 2ML VIAL IV SCH ×2 (00:31→13:22)
[2020-11-27] MEDS: IPRATROPIUM 0.5MG/ALBUTEROL 2.5MG INH SOL UD 3ML (DUONEB) NEB SCH ×4 (00:39→11:11)
[2020-11-27 04:00] VITALS: BP 107/76
[2020-11-27 05:57] LABS: HEMATOCRIT 39.3 % (36.0-47.0); HEMOGLOBIN 12.7 g/dl (12.0-15.5); MEAN CORPUSCULAR HGB CONC 32.3 g/dl (32.0-36.5); MEAN CORPUSCULAR VOLUME 92.7 fl (80.0-96.0); PLATELET COUNT, AUTOMATED 426 10^3/uL (150-450); RED BLOOD COUNT 4.24 10^6/uL (4.00-5.40); WHITE BLOOD COUNT 15.4 10^3/uL (4.0-10.0)
[2020-11-27 06:21] LABS: BLOOD UREA NITROGEN 15 MG/DL (7-18); CALCIUM LEVEL 9.4 MG/DL (8.5-10.1); CARBON DIOXIDE LEVEL 27 MEQ/L (21-32); CHLORIDE LEVEL 109 MEQ/L (98-107); CREATININE FOR GFR 0.81 MG/DL (0.55-1.30); GLOMERULAR FILTRATION RATE > 60.0 (>60); GLUCOSE, FASTING 120 MG/DL (70-100); POTASSIUM SERUM 4.3 MEQ/L (3.5-5.1); SODIUM LEVEL 141 MEQ/L (136-145)
[2020-11-27 07:31] VITALS: BP 104/59
[2020-11-27] MEDS: DOCUSATE SODIUM 100MG CAPSULE PO SCH (08:59)
[2020-11-27] MEDS: APIXABAN 5 MG TAB (ELIQUIS) PO SCH (08:59)
[2020-11-27 12:00] VITALS: BP 102/70
--- NOTE | 2020-11-27 13:02 | DS.PDOC ---
Discharge Summary General Date of Admission Nov 25, 2020 at 12:06 Date of Discharge 11/27/20 Discharge Summary PROCEDURES PERFORMED DURING STAY: [None]. ADMITTING DIAGNOSES: 1. . DISCHARGE DIAGNOSES: 1. . COMPLICATIONS/CHIEF COMPLAINT: Acute Respiratory Failure With Hypoxia, Asthma Exa. HISTORY OF PRESENT ILLNESS: . HOSPITAL COURSE: . DISCHARGE MEDICATIONS: Please see below. ALLERGIES: Please see below. PHYSICAL EXAMINATION ON DISCHARGE: VITAL SIGNS: please see below General: NAD, comfortable HEENT: PERRLA, EOMI, sclerae clear Neck: supple, normal ROM, no JVD Respiratory: lungs CTAB, no wheeze, no rales, no crackles CVS: RRR, normal S1, S2, no murmurs Abdo: soft, no masses, no hepatosplenomegaly, BS+, no rebound tenderness Extremities: no edema, pulses 2+ MSK: no joint deformities, normal ROM Neuro: no focal neuro deficits, moving all 4 extremities, CN2-12 intact. Strength 5/5 in all 4 extremities. No nystagmus. Psych: calm, cooperative, AAO x 3 LABORATORY DATA: Please see below. IMAGING: Venous duplex (11/26/20): There is no ultrasonographic evidence of deep venous thrombosis involving any of the visualized deep venous structures of the bilateral lower extremity as described above. CT angiogram chest (11/25/20): IMPRESSION: 1. Mild to moderate pulmonary emboli to the right upper lobe. 2. Small but significant scattered bilateral multifocal alveolar infiltrates with elements of mucous plugging and adenopathy. Findings are consistent with multifocal pneumonia. CXR (11/25/20): FINDINGS: The mediastinum and cardiac silhouette are stable and within normal limits for portable technique. The lung king are clear without focal consolidation, effusion, or pneumothorax. Skeletal structures are intact. IMPRESSION: No obvious focal consolidation or effusion. PROGNOSIS: very good ACTIVITY: [As tolerated]. DIET: regular DISCHARGE PLAN: DC home with eliquis 5 additional days of 10 mg BID, followed by 5 mg BID. Patient to complete 5 additional days of amoxicilin 875 mg BID, as well as a 10 day prednisone taper. Flovent was prescribed on DC for improved asthma control. Patient will follow up with Dr. Clifton, regarding irregular menstrual bleeding after starting eliquis. This was discussed with Dr. Frost, who explained that this is common when starting anticoagulation, and that a progesterone IUD or possibly ablation can be helpful if bleeding persists. DISPOSITION: DC home. DISCHARGE INSTRUCTIONS: . Please follow-up with your primary care doctor within 3-5 days . Please follow-up with gynecology, Dr. Clifton within 1-2 weeks . Please taking medications as prescribed. . If you develop bleeding, chest pain, shortness of breath, seizures, nausea, fevers, or otherwise worsening of your symptoms, please call 911 or return to the nearest emergency room DISCHARGE CONDITION: [Stable]. TIME SPENT ON DISCHARGE: 35 minutes Vital Signs/I&Os Vital Signs Date Time Temp Pulse Resp B/P (MAP) Pulse Ox O2 Delivery O2 Flow Rate FiO2 11/27/20 12:00 97.6 95 19 102/70 (81) 97 Room Air 11/27/20 04:00 2.0 I&O- Last 24 Hours up to 6 AM 11/27/20 06:00 Intake Total 780 ml Output Total 0 ml Balance 780 ml Laboratory Data Labs 24H Laboratory Tests 2 11/27/20 05:12: Nucleated Red Blood Cells % (auto) 0.0, Anion Gap 5L, Glomerular Filtration Rate > 60.0, Calcium Level 9.4 CBC/BMP Laboratory Tests 11/27/20 05:12 Microbiology Microbiology 11/25/20 Gram Stain - Final, Complete 11/25/20 Sputum Culture - Final, Complete Yeast Like Organism 11/25/20 Respiratory Virus Panel (PCR) ([facility]) - Final, Complete Discharge Medications Scheduled Amoxicillin (Amoxicillin) 875 Mg Tablet, 1 TAB PO BID Apixaban (Eliquis) 5 Mg Tablet, 5 MG PO BID Doxycycline Monohydrate (Doxycycline) 100 Mg Capsule, 1 CAP PO BID Fluticasone Propionate (Flovent Hfa) 110 Mcg/Act Aer.w.adap, 2 PUFF INH BID Prednisone (Prednisone) 10 Mg Tablet, 10 MG PO TAPER Take 4 tabs daily x 3 days, then 3 tabs daily x 3 days, then 2 tabs daily x 3 days, then 1 tab daily x 3 days and stop Scheduled PRN Albuterol Sulf (Albuterol Sulfate) 2.5 Mg/3 Ml Vial.neb, 1 VIAL INH QID PRN for SHORTNESS OF BREATH Albuterol Sulfate (Ventolin Hfa) 108 Mcg/Act Aer, 2 PUFF INH Q4H PRN for SOB/WHEEZING Allergies Coded Allergies: latex (Verified Allergy, Intermediate, 10/15/18) ENVIROMENTAL (Verified Allergy, Mild, GRASS,OROZCO,DUST, 12/10/09) Kiwi (Verified Allergy, Mild, LIPS/TONGUE BURN/SWELL, 12/10/09) SERGIO MITCHELL MD Nov 27, 2020 13:02
[2020-11-27] MEDS: AZITHROMYCIN INJ 500 MG, VIAL MATE ADAPTER 1 EACH in NS 250 ML IV SCH (13:24)
[2020-11-27] MEDS ORDERED: VENTAER INH (13:37)
[2020-11-27] MEDS ORDERED: ALBU83IN INH (13:37)
[2020-11-27] MEDS ORDERED: PRED10TA2 PO (13:37)
[2020-11-27] MEDS ORDERED: ELIQ5TAB PO (13:37)
[2020-11-27] MEDS ORDERED: DOXY-350 PO (13:37)
[2020-11-27] MEDS ORDERED: AMOX875T PO (13:37)
[2020-11-27] MEDS ORDERED: FLUT11IN INH (13:41)
[2020-11-27 14:02] LABS: BASO % 0.2 % (0.0-1.0); HEMATOCRIT 40.6 % (36.0-47.0); HEMOGLOBIN 13.2 g/dl (12.0-15.5); LYMPH % 17.7 % (24.0-44.0); MEAN CORPUSCULAR HEMOGLOBIN 30.2 pg (27.0-33.0); MEAN CORPUSCULAR HGB CONC 32.5 g/dl (32.0-36.5); MEAN CORPUSCULAR VOLUME 92.9 fl (80.0-96.0); MONO # 1.7 10^3/uL (0.0-0.8); MONO % 9.9 % (2.0-8.0); NEUTROPHILS % 71.3 % (36.0-66.0); PLATELET COUNT, AUTOMATED 448 10^3/uL (150-450); RED BLOOD COUNT 4.37 10^6/uL (4.00-5.40)
[2020-11-27 14:08] LABS: WHITE BLOOD COUNT 16.8 10^3/uL (4.0-10.0)
[2020-11-28 14:44] LABS: BODY FLUID CULTURE Not indicated. (.); LEGIONELLA ANTIGEN URINE Negative (Negative); ORGANISM ID Not indicated. (.); SPECIMEN SOURCE Urine (.); URINE STREP PNEUMONIAE ANTIGEN Positive (Negative)
== END 2020-11-27 14:51 | disposition home or self-care (01) | DRG 141 ==
LOC: EDBD 10:03 → M ED 10:03 → M ED INP 12:06 → ENRESERV 12:20 → M PCU 14:24
PROVIDERS: ADMIT Internal Medicine; ATTEND Family Medicine
DX: J45.901 Unspecified asthma with (acute) exacerbation (principal); I26.99 Other pulmonary embolism without acute cor pulmonale; J96.01 Acute respiratory failure with hypoxia; J18.9 Pneumonia, unspecified organism; Z79.899 Other long term (current) drug therapy; Z91.040 Latex allergy status; Z91.018 Allergy to other foods; K59.00 Constipation, unspecified

== ENCOUNTER 2020-12-07 08:06 | Emergency (ER) | payer MEDICAID, OTHER ==
[~2020-12-07] VITALS: Ht 170.2 cm; Wt 97.3 kg
[~2020-12-07 08:06] MED LIST changes: +AMOX875T PO; +DOXY-350 PO; +ELIQ5TAB PO; +FLUT11IN INH; +PRED10TA2 PO
[2020-12-07] MEDS ORDERED: ACETAMINOPHEN 325 MG TAB PO ONE (09:30)
[2020-12-07] MEDS ORDERED: KETOROLAC 30 MG/ML 1ML VIAL IV ONE (09:30)
--- NOTE | 2020-12-07 10:18 | REP ---
INDICATION: leg swelling pain/hx PE COMPARISON: 11/26/2020. TECHNIQUE: Real time compression and duplex Doppler interrogation of the bilateral lower extremity deep venous system is performed. Compression ultrasound is performed of the bilateral peroneal and posterior tibial veins. FINDINGS: Bilaterally, the common femoral, superficial femoral and popliteal veins are fully compressible with transducer pressure and demonstrate normal spontaneous and phasic flow, without evidence of deep venous thrombosis. No thrombus is seen in the bilateral visualized portions of the peroneal and posterior tibial veins. IMPRESSION: No evidence of deep venous thrombosis of the bilateral lower extremity femoral popliteal venous system. <Electronically signed by Phuc Garrison > 12/07/20 [id number]
[2020-12-07 10:49] VITALS: BP 106/72
== END 2020-12-07 10:53 | disposition home or self-care (01) ==
LOC: M ED 08:06
DX: R22.43 Localized swelling, mass and lump, lower limb, bilateral (principal); F17.200 Nicotine dependence, unspecified, uncomplicated; Z91.040 Latex allergy status; Z91.018 Allergy to other foods

== ENCOUNTER → 2020-12-27 | Outpatient (REF) | payer OTHER | LOC: M SFHCPLAZ 14:33 | DX: N93.9 Abnormal uterine and vaginal bleeding, unspecified (principal) ==

== ENCOUNTER 2021-07-03 08:23 | Emergency (ER) | payer OTHER ==
[~2021-07-03] VITALS: Ht 170.2 cm; Wt 93.2 kg
[2021-07-03] MEDS ORDERED: ACETAMINOPHEN 500 MG TAB PO ONE (08:30)
[2021-07-03] MEDS ORDERED: ONDANSETRON 4 MG ORAL DISINTEGRATING TAB PO ONE (08:30)
[2021-07-03 11:35] VITALS: BP 130/67
[2021-07-03] MEDS ORDERED: COMBIVENT RESPIMAT 100-20MCG INHALER 4GM INH STA (12:14)
== END 2021-07-03 12:40 | disposition home or self-care (01) ==
LOC: M ED 08:23 → EDBD 08:23 → M ED 12:40
DX: J06.9 Acute upper respiratory infection, unspecified (principal); B34.9 Viral infection, unspecified; Z86.711 Personal history of pulmonary embolism; Z79.01 Long term (current) use of anticoagulants; Z79.51 Long term (current) use of inhaled steroids; Z91.040 Latex allergy status
CPT/HCPCS: 94640; 99284; Q0162; U0003

== ENCOUNTER 2021-12-03 20:43 | Emergency (ER) | payer OTHER ==
[~2021-12-03] VITALS: Ht 167.6 cm; Wt 90.9 kg
[~2021-12-03 20:43] MED LIST changes: +ALBU2.5V10 INH; -ALBU83IN INH
[2021-12-03 21:57] LABS: BASO % 0.6 % (0.0-1.0); EOS # 0.2 10^3/uL (0.0-0.5); EOS % 3.4 % (0.0-3.0); HEMATOCRIT 36.4 % (36.0-47.0); HEMOGLOBIN 12.1 g/dl (12.0-15.5); LYMPH # 1.8 10^3/uL (1.5-5.0); MEAN CORPUSCULAR HEMOGLOBIN 30.8 pg (27.0-33.0); MEAN CORPUSCULAR HGB CONC 33.2 g/dl (32.0-36.5); MEAN CORPUSCULAR VOLUME 92.6 fl (80.0-96.0); MONO # 1.2 10^3/uL (0.0-0.8); MONO % 19.2 % (2.0-8.0); NEUTROPHILS % 48.5 % (36.0-66.0); PLATELET COUNT, AUTOMATED 292 10^3/uL (150-450); RED BLOOD COUNT 3.93 10^6/uL (4.00-5.40); WHITE BLOOD COUNT 6.3 10^3/uL (4.0-10.0)
[2021-12-03] MEDS ORDERED: ONDANSETRON 4MG/2ML VIAL IV ONE (22:00)
[2021-12-03 22:31] LABS: ALBUMIN 3.4 GM/DL (3.2-5.2); ALT/SGPT 11 U/L (12-78); BILIRUBIN,DIRECT 0.2 MG/DL (0.0-0.2); BILIRUBIN,TOTAL 0.3 MG/DL (0.2-1.0); BLOOD UREA NITROGEN 5 MG/DL (7-18); CALCIUM LEVEL 8.2 MG/DL (8.5-10.1); CARBON DIOXIDE LEVEL 24 MEQ/L (21-32); CHLORIDE LEVEL 110 MEQ/L (98-107); CREATININE FOR GFR 0.84 MG/DL (0.55-1.30); GLOMERULAR FILTRATION RATE > 60.0 (>60); GLUCOSE, FASTING 90 MG/DL (70-100); NT-PRO BNP 395 PG/ML (<125); POTASSIUM SERUM 3.3 MEQ/L (3.5-5.1); SODIUM LEVEL 141 MEQ/L (136-145)
[2021-12-03] MEDS ORDERED: IPRATROPIUM 0.5MG/ALBUTEROL 2.5MG INH SOL UD 3ML (DUONEB) NEB ONE (23:40)
[2021-12-03] MEDS ORDERED: ALBUTEROL SULFATE 2.5 MG/0.5 ML INH NEB SOLN INH ONE (23:40)
[2021-12-03] MEDS ORDERED: methylPREDNISolone 125MG 2ML VIAL IV ONE (23:40)
[2021-12-03 23:49] LABS: HCG, SERUM QUALITATIVE NEGATIVE (NEGATIVE)
[2021-12-04] MEDS ORDERED: KETOROLAC 30 MG/ML 1ML VIAL IV ONE
[2021-12-04] MEDS ORDERED: HALOPERIDOL 5MG/ML VIAL (J1630 PER 1) IV ONE
[2021-12-04] MEDS ORDERED: ISOVUE-370 76% 100ML VIAL As Ordered ONE (00:14)
[2021-12-04] MEDS ORDERED: LORazepam 2 MG/ML VIAL IV STA (00:40)
[2021-12-04 04:46] VITALS: BP 132/83
[2021-12-04] MEDS ORDERED: PRED20TA PO (04:59)
== END 2021-12-04 06:01 | disposition home or self-care (01) ==
LOC: M ED 20:43 → EDBD 20:43 → M ED 12-04 06:01
DX: J45.901 Unspecified asthma with (acute) exacerbation (principal); J12.2 Parainfluenza virus pneumonia; Z79.01 Long term (current) use of anticoagulants; Z86.711 Personal history of pulmonary embolism; Z91.048 Other nonmedicinal substance allergy status; Z91.018 Allergy to other foods; Z91.040 Latex allergy status; Z87.891 Personal history of nicotine dependence
CPT/HCPCS: 71045; 71275; 80048; 80076; 83880; 84443; 84703; 85025; 87486; 87581; 87633; 87798; 93005; 93041; 94640; 94760; 96374; 96375; 99285; J1630; J1885; J2060; J2405; J2930; Q9967

== ENCOUNTER 2022-01-15 10:13 | Emergency (ER) | payer OTHER ==
[~2022-01-15] VITALS: Ht 170.2 cm; Wt 97.3 kg
[2022-01-15] MEDS ORDERED: SERO1TAB3 PO (10:31)
[2022-01-15] MEDS ORDERED: NS 1,000 ML IV ONE (11:25)
[2022-01-15] MEDS ORDERED: KETOROLAC 30 MG/ML 1ML VIAL IV ONE (11:25)
[2022-01-15] MEDS ORDERED: ONDANSETRON 4MG 2ML VIAL IV ONE (11:25)
[2022-01-15 11:54] LABS: BASO # 0.1 10^3/uL (0.0-0.2); BASO % 0.7 % (0.0-1.0); EOS # 0.1 10^3/uL (0.0-0.5); EOS % 0.8 % (0.0-3.0); HEMATOCRIT 38.9 % (36.0-47.0); LYMPH # 1.6 10^3/uL (1.5-5.0); LYMPH % 21.7 % (24.0-44.0); MEAN CORPUSCULAR HEMOGLOBIN 31.3 pg (27.0-33.0); MEAN CORPUSCULAR HGB CONC 33.4 g/dl (32.0-36.5); MEAN CORPUSCULAR VOLUME 93.7 fl (80.0-96.0); MONO # 0.8 10^3/uL (0.0-0.8); MONO % 11.1 % (2.0-8.0); NEUTROPHILS # 4.8 10^3/uL (1.5-8.5); NEUTROPHILS % 65.3 % (36.0-66.0); PLATELET COUNT, AUTOMATED 339 10^3/uL (150-450); RED BLOOD COUNT 4.15 10^6/uL (4.00-5.40); WHITE BLOOD COUNT 7.4 10^3/uL (4.0-10.0)
[2022-01-15 12:26] LABS: ALBUMIN 3.7 GM/DL (3.2-5.2); ALT/SGPT 16 U/L (12-78); BILIRUBIN,DIRECT < 0.1 MG/DL (0.0-0.2); BILIRUBIN,TOTAL 0.4 MG/DL (0.2-1.0); BLOOD UREA NITROGEN 8 MG/DL (7-18); CALCIUM LEVEL 9.5 MG/DL (8.5-10.1); CARBON DIOXIDE LEVEL 24 MEQ/L (21-32); CHLORIDE LEVEL 111 MEQ/L (98-107); CREATININE FOR GFR 0.88 MG/DL (0.55-1.30); GLOMERULAR FILTRATION RATE > 60.0 (>60); GLUCOSE, FASTING 117 MG/DL (70-100); LIPASE 99 U/L (73-393); POTASSIUM SERUM 3.9 MEQ/L (3.5-5.1); SODIUM LEVEL 143 MEQ/L (136-145); TOTAL PROTEIN 7.3 GM/DL (6.4-8.2)
[2022-01-15 13:00] LABS: HCG, SERUM QUALITATIVE NEGATIVE (NEGATIVE)
[2022-01-15] MEDS ORDERED: HALOPERIDOL 5MG/ML VIAL (J1630 PER 1) IV ONE (13:40)
[2022-01-15 14:24] LABS: AMPHETAMINES LEVEL URINE NEGATIVE (NEGATIVE); BARBITURATES URINE NEGATIVE (NEGATIVE); BENZODIAZEPINES URINE NEGATIVE (NEGATIVE); CANNABINOIDS URINE POSITIVE (NEGATIVE); COCAINE METABOLITE URINE POSITIVE (NEGATIVE); METHADONE URINE NEGATIVE (NEGATIVE); OPIATES URINE POSITIVE (NEGATIVE); PHENCYCLIDINE URINE NEGATIVE (NEGATIVE)
[2022-01-15] MEDS ORDERED: ISOVUE-370 76% 100ML VIAL As Ordered ONE (15:20)
[2022-01-15 15:23] VITALS: BP 125/71
== END 2022-01-15 16:40 | disposition left against medical advice (07) ==
LOC: M ED 10:13 → EDBD 10:13 → M ED 16:40
DX: R11.2 Nausea with vomiting, unspecified (principal); R19.7 Diarrhea, unspecified; J45.909 Unspecified asthma, uncomplicated; F31.9 Bipolar disorder, unspecified; F32.A Depression, unspecified; F41.9 Anxiety disorder, unspecified; K21.9 Gastro-esophageal reflux disease without esophagitis; R56.9 Unspecified convulsions; Z79.899 Other long term (current) drug therapy; Z86.711 Personal history of pulmonary embolism; F17.210 Nicotine dependence, cigarettes, uncomplicated
CPT/HCPCS: 80048; 80076; 80307; 81001; 83690; 84703; 85025; 87086; 96374; 96375; 99284; J1630; J2405

== ENCOUNTER 2022-07-11 09:58 | Emergency (ER) | payer OTHER ==
[~2022-07-11] VITALS: Ht 167.6 cm; Wt 93.2 kg
[~2022-07-11 09:58] MED LIST changes: -DOXY-350 PO; +DOXY-444 PO; +SERO1TAB3 PO
[2022-07-11] MEDS ORDERED: NS 500 ML IV ONE (10:55)
[2022-07-11] MEDS: COMBIVENT RESPIMAT 100-20MCG INHALER 4GM INH SCH (11:04)
[2022-07-11 11:45] LABS: BASO % 0.5 % (0.0-1.0); EOS # 0.2 10^3/uL (0.0-0.5); EOS % 3.1 % (0.0-3.0); HEMATOCRIT 39.7 % (36.0-47.0); HEMOGLOBIN 13.4 g/dl (12.0-15.5); LYMPH # 0.6 10^3/uL (1.5-5.0); LYMPH % 8.1 % (24.0-44.0); MEAN CORPUSCULAR HEMOGLOBIN 31.1 pg (27.0-33.0); MEAN CORPUSCULAR HGB CONC 33.8 g/dl (32.0-36.5); MEAN CORPUSCULAR VOLUME 92.1 fl (80.0-96.0); MONO # 0.6 10^3/uL (0.0-0.8); MONO % 7.6 % (2.0-8.0); NEUTROPHILS # 6.1 10^3/uL (1.5-8.5); NEUTROPHILS % 80.4 % (36.0-66.0); PLATELET COUNT, AUTOMATED 310 10^3/uL (150-450); RED BLOOD COUNT 4.31 10^6/uL (4.00-5.40); WHITE BLOOD COUNT 7.6 10^3/uL (4.0-10.0)
[2022-07-11 12:09] LABS: ALBUMIN 3.7 G/DL (3.2-5.2); ALKALINE PHOSPHATASE 60 U/L (46-116); ALT/SGPT 11 U/L (7.0-40); AST/SGOT 11 U/L (<34); BILIRUBIN,TOTAL 0.5 MG/DL (0.3-1.2); BLOOD UREA NITROGEN 7 MG/DL (9-23); CALCIUM LEVEL 8.6 MG/DL (8.5-10.1); CARBON DIOXIDE LEVEL 23 MMOL/L (20-31); CHLORIDE LEVEL 108 MMOL/L (98-107); CREATININE FOR GFR 0.71 MG/DL (0.55-1.30); GLOMERULAR FILTRATION RATE > 60.0 (>60); GLUCOSE, FASTING 105 MG/DL (60-100); POTASSIUM SERUM 3.6 MMOL/L (3.5-5.1); SODIUM LEVEL 139 MMOL/L (136-145)
[2022-07-11] MEDS ORDERED: ACETAMINOPHEN 325 MG TAB PO ONE (12:10)
[2022-07-11 12:24] LABS: HCG, SERUM QUALITATIVE NEGATIVE (NEGATIVE)
[2022-07-11 13:00] VITALS: BP 147/79
[2022-07-11] MEDS ORDERED: PRED20TA PO (13:44)
[2022-07-11] MEDS ORDERED: HOME MED LIST COMPLETE! XX SCH (14:00)
[2022-07-11] MEDS ORDERED: NIRMATRELVIR/RITONAVIR CO-PACK (EMERGENCY USE AUTH) PO SCH ×2 (14:15→21:00)
== END 2022-07-11 14:37 | disposition home or self-care (01) ==
LOC: M ED 09:58 → EDBD 09:58 → M ED 14:37
DX: U07.1 COVID-19 (principal); J45.901 Unspecified asthma with (acute) exacerbation; F31.9 Bipolar disorder, unspecified; G43.909 Migraine, unspecified, not intractable, without status migrainosus; Z91.018 Allergy to other foods; Z91.040 Latex allergy status; Z79.51 Long term (current) use of inhaled steroids; Z79.899 Other long term (current) drug therapy
CPT/HCPCS: 71045; 80053; 83605; 84703; 85025; 87040; 87486; 87581; 87633; 87798; 94640; 96361; 96374; 99284; J1100

== ENCOUNTER 2023-03-11 12:04 | Emergency (ER) | payer OTHER ==
[~2023-03-11] VITALS: Ht 167.6 cm; Wt 98.7 kg
[~2023-03-11 12:04] MED LIST changes: -FLUT11IN INH; +FLUT12AE6 INH
[2023-03-11 12:12] VITALS: BP 132/76; TEMP 97.4; O2SAT 99
[2023-03-11] MEDS ORDERED: PARA1IUD IU (12:36)
== END 2023-03-11 13:45 | disposition left against medical advice (07) ==
LOC: M ED 12:04 → EDBD 12:04 → M ED 13:45
DX: Z53.21 Procedure and treatment not carried out due to patient leaving prior to being seen by health care provider (principal)

== ENCOUNTER 2023-05-03 08:25 | Emergency (ER) | payer OTHER ==
[~2023-05-03] VITALS: Ht 167.6 cm; Wt 102.4 kg
[~2023-05-03 08:25] MED LIST changes: +PARA1IUD IU
[2023-05-03] MEDS ORDERED: ALBUTEROL SULFATE 2.5MG/0.5ML INH NEB SOLN INH ONE (08:40)
[2023-05-03] MEDS ORDERED: IPRATROPIUM 0.5MG/ALBUTEROL 2.5MG INH SOL UD 3ML (DUONEB) NEB ONE (08:40)
[2023-05-03 09:03] LABS: BASO # 0.1 10^3/uL (0.0-0.2); BASO % 0.5 % (0.0-1.0); EOS # 0.6 10^3/uL (0.0-0.5); EOS % 4.3 % (0.0-3.0); HEMATOCRIT 38.8 % (36.0-47.0); HEMOGLOBIN 13.3 g/dl (12.0-15.5); LYMPH # 1.8 10^3/uL (1.5-5.0); LYMPH % 14.1 % (24.0-44.0); MEAN CORPUSCULAR HEMOGLOBIN 31.7 pg (27.0-33.0); MEAN CORPUSCULAR HGB CONC 34.3 g/dl (32.0-36.5); MEAN CORPUSCULAR VOLUME 92.4 fl (80.0-96.0); MONO # 1.3 10^3/uL (0.0-0.8); MONO % 9.8 % (2.0-8.0); NEUTROPHILS # 9.2 10^3/uL (1.5-8.5); NEUTROPHILS % 71.1 % (36.0-66.0); PLATELET COUNT, AUTOMATED 282 10^3/uL (150-450)
[2023-05-03 09:29] LABS: ALBUMIN 3.4 G/DL (3.2-5.2); ALKALINE PHOSPHATASE 49 U/L (46-116); ALT/SGPT 14 U/L (7.0-40); AST/SGOT 13 U/L (<34); BILIRUBIN,DIRECT 0.3 MG/DL (<0.4); BILIRUBIN,TOTAL 0.8 MG/DL (0.3-1.2); BLOOD UREA NITROGEN 11 MG/DL (9-23); CALCIUM LEVEL 8.3 MG/DL (8.5-10.1); CARBON DIOXIDE LEVEL 22 MMOL/L (20-31); CHLORIDE LEVEL 111 MMOL/L (98-107); CREATININE FOR GFR 0.68 MG/DL (0.55-1.30); GLOMERULAR FILTRATION RATE > 60.0 (>60); GLUCOSE, FASTING 96 MG/DL (60-100); SODIUM LEVEL 142 MMOL/L (136-145); TOTAL PROTEIN 6.8 G/DL (5.7-8.2)
[2023-05-03] MEDS ORDERED: ISOVUE-370 76% 100ML VIAL As Ordered ONE (10:35)
[2023-05-03] MEDS ORDERED: IPRATROPIUM 0.5MG/ALBUTEROL 2.5MG INH SOL UD 3ML (DUONEB) NEB STA (10:49)
[2023-05-03 12:07] VITALS: O2SAT 92
[2023-05-03] MEDS ORDERED: NEBU1EAC78 MC (12:31)
[2023-05-03] MEDS ORDERED: ALBU6.7H6 INH (12:31)
[2023-05-03] MEDS ORDERED: ALBU2.5V10 NEB (12:31)
[2023-05-03] MEDS ORDERED: PRED20TA PO (12:33)
[2023-05-03 12:56] VITALS: BP 134/80; TEMP 97.4; O2SAT 98
== END 2023-05-03 13:03 | disposition home or self-care (01) ==
LOC: EDBD 08:25 → M ED 08:25
DX: J45.901 Unspecified asthma with (acute) exacerbation (principal); F12.10 Cannabis abuse, uncomplicated; F10.10 Alcohol abuse, uncomplicated; F17.200 Nicotine dependence, unspecified, uncomplicated; Z91.040 Latex allergy status; Z91.018 Allergy to other foods; Z88.5 Allergy status to narcotic agent; Z79.52 Long term (current) use of systemic steroids; Z79.899 Other long term (current) drug therapy
CPT/HCPCS: 36415; 71045; 71275; 80047; 80048; 80076; 84702; 85025; 87486; 87581; 87633; 87798; 93005; 93041; 94640; 94760; 99285; Q9967

== ENCOUNTER 2023-05-25 12:14 | Emergency (ER) | payer OTHER ==
[~2023-05-25] VITALS: Ht 170.2 cm; Wt 197.0 kg
[~2023-05-25 12:14] MED LIST changes: +ALBU2.5V10 NEB; +ALBU6.7H6 INH; +NEBU1EAC78 MC
[2023-05-25] MEDS ORDERED: ONDANSETRON 4MG 2ML VIAL IV ONE (15:05)
[2023-05-25] MEDS ORDERED: ACETAMINOPHEN *IV* 1,000 MG in IV 1 EA IV ONE (15:05)
[2023-05-25] MEDS ORDERED: NS 1,000 ML IV ONE (15:05)
[2023-05-25 15:43] LABS: BASO % 0.2 % (0.0-1.0); EOS % 0.1 % (0.0-3.0); HEMATOCRIT 39.1 % (36.0-47.0); HEMOGLOBIN 13.2 g/dl (12.0-15.5); LYMPH # 1.3 10^3/uL (1.5-5.0); LYMPH % 14.3 % (24.0-44.0); MEAN CORPUSCULAR HEMOGLOBIN 31.1 pg (27.0-33.0); MEAN CORPUSCULAR HGB CONC 33.8 g/dl (32.0-36.5); MONO # 0.4 10^3/uL (0.0-0.8); MONO % 4.5 % (2.0-8.0); NEUTROPHILS # 7.5 10^3/uL (1.5-8.5); NEUTROPHILS % 80.5 % (36.0-66.0); PLATELET COUNT, AUTOMATED 302 10^3/uL (150-450); RED BLOOD COUNT 4.25 10^6/uL (4.00-5.40); WHITE BLOOD COUNT 9.4 10^3/uL (4.0-10.0)
[2023-05-25 15:47] LABS: ERYTHROCYTE SEDIMENTATION RATE 40 mm/hr (0-20)
[2023-05-25 16:05] LABS: C REACTIVE PROTEIN QUANTITATIV 1.6 MG/DL (<1.0)
[2023-05-25 16:07] LABS: ALBUMIN 3.7 G/DL (3.2-5.2); BILIRUBIN,DIRECT 0.2 MG/DL (<0.4); BILIRUBIN,TOTAL 0.6 MG/DL (0.3-1.2); TOTAL PROTEIN 7.2 G/DL (5.7-8.2)
[2023-05-25] MEDS ORDERED: ISOVUE-370 76% 100ML VIAL As Ordered ONE (16:29)
[2023-05-25] MEDS ORDERED: HALOPERIDOL 5MG/ML 1ML VIAL IV ONE (16:50)
[2023-05-25 18:15] VITALS: BP 114/58; TEMP 98.2; O2SAT 98
== END 2023-05-25 18:23 | disposition home or self-care (01) ==
LOC: M ED 12:14 → EDBD 12:14 → M ED 18:23
DX: K51.019 Ulcerative (chronic) pancolitis with unspecified complications (principal); G40.909 Epilepsy, unspecified, not intractable, without status epilepticus; J45.909 Unspecified asthma, uncomplicated; Z87.442 Personal history of urinary calculi; Z86.711 Personal history of pulmonary embolism; Z88.5 Allergy status to narcotic agent; Z91.040 Latex allergy status; Z91.018 Allergy to other foods
CPT/HCPCS: 74177; 80047; 80076; 83605; 83690; 84702; 85025; 85652; 86140; 96365; 96366; 96375; 99284; J0131; J1630; J2405; Q9967

== ENCOUNTER 2023-07-10 16:23 | Inpatient (IN) | payer OTHER ==
[2023-07-10] MEDS ORDERED: NS 1,000 ML IV ONE (16:50)
[2023-07-10] MEDS ORDERED: HALOPERIDOL 5MG/ML 1ML VIAL IV ONE (16:50)
[2023-07-10] MEDS ORDERED: ACETAMINOPHEN *IV* 1,000 MG in IV 1 EA IV ONE (16:50)
[2023-07-10] MEDS ORDERED: ONDANSETRON 4MG 2ML VIAL IV ONE (16:50)
[2023-07-10 17:14] LABS: BASO # 0.1 10^3/uL (0.0-0.2); BASO % 0.6 % (0.0-1.0); EOS # 0.4 10^3/uL (0.0-0.5); EOS % 3.3 % (0.0-3.0); HEMATOCRIT 42.9 % (36.0-47.0); HEMOGLOBIN 14.4 g/dl (12.0-15.5); LYMPH # 2.7 10^3/uL (1.5-5.0); LYMPH % 25.2 % (24.0-44.0); MEAN CORPUSCULAR HEMOGLOBIN 31.5 pg (27.0-33.0); MEAN CORPUSCULAR HGB CONC 33.6 g/dl (32.0-36.5); MEAN CORPUSCULAR VOLUME 93.9 fl (80.0-96.0); MONO # 0.7 10^3/uL (0.0-0.8); NEUTROPHILS # 6.7 10^3/uL (1.5-8.5); NEUTROPHILS % 63.6 % (36.0-66.0); PLATELET COUNT, AUTOMATED 343 10^3/uL (150-450); RED BLOOD COUNT 4.57 10^6/uL (4.00-5.40); WHITE BLOOD COUNT 10.6 10^3/uL (4.0-10.0)
[2023-07-10 17:23] LABS: ERYTHROCYTE SEDIMENTATION RATE 42 mm/hr (0-20)
[2023-07-10 17:33] LABS: C REACTIVE PROTEIN QUANTITATIV 1.2 MG/DL (<1.0)
[2023-07-10 17:34] LABS: ALBUMIN 3.9 G/DL (3.2-5.2); BILIRUBIN,DIRECT 0.2 MG/DL (<0.4); BILIRUBIN,TOTAL 0.7 MG/DL (0.3-1.2); MAGNESIUM LEVEL 1.9 MG/DL (1.8-2.4); TOTAL PROTEIN 7.4 G/DL (5.7-8.2)
[2023-07-10 17:37] LABS: THYROID STIMULATING HORMONE 1.523 uIU/ML (0.55-4.78)
[2023-07-10 18:35] LABS: ETHYL ALCOHOL (ETHANOL) < 0.003 % (0.000-0.010)
[2023-07-10 18:37] LABS: CK-MB VALUE MASS < 1.0 NG/ML (<3.6); CPK CREATINE PHOSPHOKINASE 384 U/L (34-145); MB/CK RELATIVE INDEX 0.26 (< OR =4); SALICYLATE LEVEL < 3.0 MG/DL (<30)
[2023-07-10 18:59] LABS: AMPHETAMINES LEVEL URINE NEGATIVE (NEGATIVE); BARBITURATES URINE NEGATIVE (NEGATIVE); BENZODIAZEPINES URINE NEGATIVE (NEGATIVE); COCAINE METABOLITE URINE NEGATIVE (NEGATIVE); METHADONE URINE NEGATIVE (NEGATIVE); OPIATES URINE NEGATIVE (NEGATIVE); PHENCYCLIDINE URINE NEGATIVE (NEGATIVE)
[2023-07-10 19:01] LABS: CANNABINOIDS URINE POSITIVE (NEGATIVE)
[2023-07-10] MEDS ORDERED: ACETYLCYSTEINE IV ONE ×3 (20:45→22:30)
[2023-07-10] MEDS ORDERED: D5W IV ONE ×3 (20:45→22:30)
[2023-07-10] MEDS ORDERED: ALBUTEROL SULFATE 2.5MG/0.5ML INH NEB SOLN NEB ONE (22:55)
[2023-07-11 01:15] LABS: ALBUMIN 3.4 G/DL (3.2-5.2); ALKALINE PHOSPHATASE 47 U/L (46-116); ALT/SGPT 11 U/L (7.0-40); AST/SGOT 10 U/L (<34); BILIRUBIN,DIRECT 0.3 MG/DL (<0.4); BILIRUBIN,TOTAL 0.7 MG/DL (0.3-1.2); TOTAL PROTEIN 6.9 G/DL (5.7-8.2)
[2023-07-11] MEDS ORDERED: HOME MED LIST COMPLETE! XX SCH (02:05)
[2023-07-11] MEDS ORDERED: ACETYLCYSTEINE IV ONE (02:30)
[2023-07-11] MEDS ORDERED: D5W IV ONE (02:30)
[2023-07-11] MEDS ORDERED: ALBUTEROL SULFATE 2.5MG/0.5ML INH NEB SOLN NEB PRN (04:00)
[2023-07-11 05:26] LABS: RSV AMPLIFICATION NEGATIVE (NEGATIVE)
[2023-07-11 06:38] LABS: INR 1.16; PROTHROMBIN TIME 14.4 SECONDS (12.5-14.5)
[2023-07-11 07:03] LABS: ALBUMIN 3.2 G/DL (3.2-5.2); ALKALINE PHOSPHATASE 45 U/L (46-116); ALT/SGPT 11 U/L (7.0-40); AST/SGOT 10 U/L (<34); BILIRUBIN,TOTAL 0.6 MG/DL (0.3-1.2); BLOOD UREA NITROGEN 7 MG/DL (9-23); CALCIUM LEVEL 8.6 MG/DL (8.5-10.1); CARBON DIOXIDE LEVEL 22 MMOL/L (20-31); CHLORIDE LEVEL 110 MMOL/L (98-107); CREATININE FOR GFR 0.61 MG/DL (0.55-1.30); GLOMERULAR FILTRATION RATE > 60.0 (>60); GLUCOSE, FASTING 104 MG/DL (60-100); POTASSIUM SERUM 3.9 MMOL/L (3.5-5.1); SODIUM LEVEL 141 MMOL/L (136-145); TOTAL PROTEIN 6.5 G/DL (5.7-8.2)
[2023-07-11 07:52] VITALS: BP 128/74; TEMP 98.1; O2SAT 96
== END 2023-07-11 12:20 | disposition left against medical advice (07) | DRG 812 ==
LOC: EDBD 16:23 → M ED 16:23 → M ED INP 07-11 03:56
PROVIDERS: ADMIT Internal Medicine; ATTEND Student in an Organized Health Care Education/Training Program
DX: T39.1X1A Poisoning by 4-Aminophenol derivatives, accidental (unintentional), initial encounter (principal); R55 Syncope and collapse; G43.909 Migraine, unspecified, not intractable, without status migrainosus; F17.210 Nicotine dependence, cigarettes, uncomplicated; F12.90 Cannabis use, unspecified, uncomplicated; Z91.018 Allergy to other foods; Z88.5 Allergy status to narcotic agent; Z91.040 Latex allergy status; Z88.8 Allergy status to other drugs, medicaments and biological substances; H53.149 Visual discomfort, unspecified

== ENCOUNTER 2024-02-06 09:44 | Emergency (ER) | payer MEDICAID, OTHER ==
[~2024-02-06] VITALS: Ht 170.2 cm; Wt 89.5 kg
[~2024-02-06 09:44] MED LIST changes: +DOXY-440 PO; -DOXY-444 PO
[2024-02-06 10:42] LABS: BASO % 0.4 % (0.0-1.0); EOS # 0.2 10^3/uL (0.0-0.5); EOS % 1.3 % (0.0-3.0); HEMATOCRIT 38.2 % (36.0-47.0); HEMOGLOBIN 13.2 g/dl (12.0-15.5); LYMPH # 4.3 10^3/uL (1.5-5.0); LYMPH % 38.5 % (24.0-44.0); MEAN CORPUSCULAR HEMOGLOBIN 31.8 pg (27.0-33.0); MEAN CORPUSCULAR HGB CONC 34.6 g/dl (32.0-36.5); MONO % 8.9 % (2.0-8.0); NEUTROPHILS # 5.7 10^3/uL (1.5-8.5); NEUTROPHILS % 50.6 % (36.0-66.0); PLATELET COUNT, AUTOMATED 307 10^3/uL (150-450); RED BLOOD COUNT 4.15 10^6/uL (4.00-5.40); WHITE BLOOD COUNT 11.2 10^3/uL (4.0-10.0)
[2024-02-06] MEDS: NS 1,000 ML IV ONE ×2 (10:51→11:58)
[2024-02-06] MEDS: MORPHINE 2 MG/ML 1ML VIAL IV PRN (10:51)
[2024-02-06] MEDS: ONDANSETRON 4MG 2ML VIAL IV ONE (10:51)
[2024-02-06 11:02] LABS: HCG, SERUM QUALITATIVE NEGATIVE (NEGATIVE); LIPASE 30 U/L (12-53)
[2024-02-06 11:03] LABS: AMYLASE 80 U/L (30-118)
[2024-02-06 11:04] LABS: ALBUMIN 3.4 G/DL (3.2-5.2); ALKALINE PHOSPHATASE 47 U/L (46-116); ALT/SGPT 23 U/L (7.0-40); AST/SGOT 12 U/L (<34); BILIRUBIN,DIRECT 0.2 MG/DL (<0.4); BILIRUBIN,TOTAL 0.5 MG/DL (0.3-1.2); BLOOD UREA NITROGEN 15 MG/DL (9-23); CALCIUM LEVEL 8.7 MG/DL (8.5-10.1); CARBON DIOXIDE LEVEL 27 MMOL/L (20-31); CHLORIDE LEVEL 110 MMOL/L (98-107); GLOMERULAR FILTRATION RATE > 60.0 (>60); GLUCOSE, FASTING 115 MG/DL (60-100); POTASSIUM SERUM 3.3 MMOL/L (3.5-5.1); SODIUM LEVEL 141 MMOL/L (136-145); TOTAL PROTEIN 6.5 G/DL (5.7-8.2)
[2024-02-06] MEDS ORDERED: ISOVUE-370 76% 100ML VIAL As Ordered ONE (11:26)
[2024-02-06 11:29] LABS: ETHYL ALCOHOL (ETHANOL) < 0.003 % (0.000-0.010)
[2024-02-06 11:31] LABS: SALICYLATE LEVEL < 3.0 MG/DL (<30)
[2024-02-06 12:41] LABS: AMPHETAMINES LEVEL URINE NEGATIVE (NEGATIVE)
[2024-02-06 12:42] LABS: BARBITURATES URINE NEGATIVE (NEGATIVE); BENZODIAZEPINES URINE NEGATIVE (NEGATIVE); CANNABINOIDS URINE POSITIVE (NEGATIVE); COCAINE METABOLITE URINE NEGATIVE (NEGATIVE); METHADONE URINE NEGATIVE (NEGATIVE); OPIATES URINE POSITIVE (NEGATIVE); PHENCYCLIDINE URINE NEGATIVE (NEGATIVE)
[2024-02-06] MEDS ORDERED: VENTAER INH (14:43)
[2024-02-06] MEDS ORDERED: DOXY-323 PO (14:43)
[2024-02-06] MEDS: DOXYCYCLINE HYCLATE 100MG TABLET PO ONE (14:57)
[2024-02-06 15:00] VITALS: BP 104/61; TEMP 97.6
[2024-02-06 15:01] VITALS: O2SAT 98
== END 2024-02-06 15:12 | disposition home or self-care (01) ==
LOC: EDBD 09:44 → M ED 09:44
DX: J18.9 Pneumonia, unspecified organism (principal); R11.2 Nausea with vomiting, unspecified; R00.1 Bradycardia, unspecified; F17.200 Nicotine dependence, unspecified, uncomplicated; F12.10 Cannabis abuse, uncomplicated; Z91.040 Latex allergy status; Z88.5 Allergy status to narcotic agent; Z91.018 Allergy to other foods; Z79.52 Long term (current) use of systemic steroids; Z79.2 Long term (current) use of antibiotics
CPT/HCPCS: 71046; 74177; 80047; 80048; 80076; 80143; 80307; 81001; 82077; 82150; 83605; 83690; 84703; 85025; 87040; 93005; 93041; 96361; 96374; 99285; J2405; Q9967

== ENCOUNTER 2025-02-04 06:38 | Emergency (ER) | payer OTHER ==
[~2025-02-04] VITALS: Ht 167.6 cm; Wt 92.9 kg
[~2025-02-04 06:38] MED LIST changes: +DOXY-441 PO
[2025-02-04] MEDS: ONDANSETRON 4MG 2ML VIAL IV ONE (07:40)
[2025-02-04 07:58] LABS: BASO # 0.1 10^3/uL (0.0-0.2); BASO % 0.5 % (0.0-1.0); EOS # 0.2 10^3/uL (0.0-0.5); EOS % 1.7 % (0.0-3.0); LYMPH # 2.8 10^3/uL (1.5-5.0); LYMPH % 29.0 % (24.0-44.0); MONO # 1.1 10^3/uL (0.0-0.8); MONO % 11.2 % (2.0-8.0); NEUTROPHILS # 5.6 10^3/uL (1.5-8.5); NEUTROPHILS % 57.4 % (36.0-66.0); PLATELET COUNT, AUTOMATED 291 10^3/uL (150-450)
[2025-02-04] MEDS: HALOPERIDOL LACTATE 5 MG/ML VIAL IV ONE (08:07)
[2025-02-04] MEDS: NS (Normal Saline) 0.9% 1,000 ML IV ONE (08:11)
[2025-02-04] MEDS: DICYCLOMINE INJ 20 MG/2 ML IM ONE (08:12)
[2025-02-04 08:22] LABS: ALT/SGPT 13 U/L (7.0-40); AST/SGOT 16 U/L (<34)
[2025-02-04 08:37] LABS: HCG, SERUM QUALITATIVE NEGATIVE (NEGATIVE)
[2025-02-04] MEDS ORDERED: ONDA-282 PO (11:36)
[2025-02-04 11:41] VITALS: BP 102/56; TEMP 97.2; O2SAT 97
== END 2025-02-04 12:13 | disposition home or self-care (01) ==
LOC: EDBD 06:38 → M ED 06:38
DX: R11.10 Vomiting, unspecified (principal); F31.9 Bipolar disorder, unspecified; F19.10 Other psychoactive substance abuse, uncomplicated; Z87.442 Personal history of urinary calculi; Z88.5 Allergy status to narcotic agent; Z91.018 Allergy to other foods; Z91.048 Other nonmedicinal substance allergy status; Z79.52 Long term (current) use of systemic steroids; Z79.899 Other long term (current) drug therapy
CPT/HCPCS: 80047; 80076; 83690; 84703; 85025; 96361; 96372; 96374; 96375; 99284; J0500; J1630; J2405